=== PATIENT | female | born 1975 | race Hispanic/Latino ===

== ENCOUNTER 2021-09-16 11:35 | Inpatient (IN) | payer MEDICAID ==
[~2021-09-16] VITALS: Ht 157.5 cm; Wt 93.0 kg
[2021-09-16] MEDS ORDERED: FAMOTIDINE 20MG VIAL IV ONE (12:30)
[2021-09-16] MEDS ORDERED: 0.9%NACL 1000ML 1,000 ML IV ONE ×2 (12:30)
[2021-09-16] MEDS ORDERED: CEFTRIAXONE 1G VIAL IV ONE (12:30)
[2021-09-16] MEDS ORDERED: ONDANSETRON 4MG INJ IVP ONE (12:30)
[2021-09-16 12:39] LABS: BASOPHILS % (AUTO) 0.6 % (0.0-5.0); EOSINOPHILS % (AUTO) 0.1 % (0.0-8.0); HEMATOCRIT 32.1 % (36-48); LYMPHOCYTES % (AUTO) 8.3 % (21.0-51.0); MEAN CORPUSCULAR HEMOGLOBIN 20.4 pg (27.0-33.0); MEAN CORPUSCULAR HGB CONC 31.2 g/dL (32.0-36.0); MEAN CORPUSCULAR VOLUME 65.5 fL (79-99); MONOCYTES % (AUTO) 1.4 % (3.0-13.0); NEUTROPHILS % (AUTO) 88.4 % (40.0-77.0); PLATELET COUNT (AUTO) 83 K/uL (130-400); RED CELL DISTRIBUTION WIDTH 18.5 % (11.0-15.5); WHITE BLOOD COUNT (AUTO) 11.5 K/uL (4.8-10.8)
[2021-09-16 12:53] LABS: CARBON DIOXIDE 23 mmol/L (21-32); CHLORIDE 94 mmol/L (101-111); CREATININE 2.2 mg/dL (0.5-1.5); GLOMERULAR FILTR. RATE CALC 25 mL/min (>60); GLUCOSE,RANDOM 130 mg/dL (70-105); POTASSIUM 3.4 mmol/L (3.5-5.1); SODIUM SERUM 135 mmol/L (136-145); UREA NITROGEN, BLOOD 35 mg/dL (7-18)
[2021-09-16 13:00] LABS: ALANINE AMINOTRANSFERASE 77 U/L (12-78); ALBUMIN 2.4 g/dL (3.5-5.0); ASPARTATE AMINOTRANSFERASE 98 U/L (10-37); BILIRUBIN,TOTAL 2.3 mg/dL (0.2-1.0); TOTAL PROTEIN, SERUM 6.6 g/dL (6.0-8.3)
[2021-09-16] MEDS ORDERED: MORPHINE 2 MG SYG IVP ONE (13:00)
[2021-09-16] MEDS ORDERED: 0.9%NACL 50ML 50 ML IV ONE ×2 (13:00→19:20)
[2021-09-16 13:02] LABS: LIPASE < 50 U/L (114-286)
[2021-09-16 13:45] LABS: APPEARANCE,URINE CLEAR (CLEAR); BILIRUBIN,URINE MODERATE (NEGATIVE); COLOR,URINE YELLOW (YELLOW); GLUCOSE, URINE (UA) NEGATIVE (NEGATIVE); KETONES,URINE 5 mg/dL (NEGATIVE); LEUKOCYTE ESTERASE ,URINE MODERATE (NEGATIVE); NITRATE,URINE NEGATIVE (NEGATIVE); OCCULT BLOOD,URINE NEGATIVE (NEGATIVE); PROTEIN,URINE 100 mg/dL (NEGATIVE)
[2021-09-16 13:47] LABS: HCG,QUAL RESULT NEGATIVE (NEGATIVE)
[2021-09-16 13:51] LABS: BACTERIA,URINE Few /HPF (None Seen); RBC,URINE None Seen /HPF (0-1); YEAST,URINE BUDDING Few /HPF (None Seen)
[2021-09-16 13:52] LABS: MUCUS,URINE Rare LPF (None Seen); SQUAMOUS EPITHELIAL CELL,UR Moderate /HPF (0-2)
[2021-09-16] MEDS ORDERED: ONDANSETRON 4MG INJ IV PRN (16:30)
[2021-09-16] MEDS ORDERED: MORPHINE 2 MG SYG IV PRN (16:30)
[2021-09-16] MEDS: 0.9%NACL 1000ML 1,000 ML IV SCH ×2 (16:45→22:02)
[2021-09-16] MEDS: DOXYCYCLINE 100MG+NS 250ML IV SCH (16:47)
[2021-09-16] MEDS ORDERED: [UNRECOGNIZED DRUG - REMARK] MISC SCH (17:00)
[2021-09-16 17:26] LABS: HEMOGLOBIN A1C 8.3 % (4.0-6.0)
[2021-09-16 17:52] LABS: CRP QUANTITATIVE 382.6 mg/L (0.00-9.0)
[2021-09-16] MEDS: ALBUTEROL 0.083% 2.5 MG/3 ML INH IH SCH ×2 (18:00→21:18)
[2021-09-16] MEDS: ZOSYN 3.375GM+NS 50ML 50 ML IV SCH (19:26)
[2021-09-16] MEDS: ACETAMINOPHEN 325 MG TAB PO PRN (19:38)
[2021-09-16 20:15] VITALS: BP 113/50
[2021-09-16] MEDS ORDERED: ZOSYN 3.375GM+NS 50ML 50 ML IV SCH (21:00)
[2021-09-16] MEDS: BENZONATATE 100 MG CAPSULE PO SCH (21:49)
[2021-09-16] MEDS: FAMOTIDINE 20MG VIAL IV SCH (21:49)
[2021-09-16] MEDS ORDERED: IBUPROFEN 800 MG TAB PO STA (22:11)
[2021-09-16] MEDS ORDERED: KCL 20 MEQ ERTAB PO STA (22:11)
[2021-09-16 23:33] VITALS: BP 117/61
[2021-09-16] MEDS ORDERED: KCL 20 MEQ ERTAB PO ONE (23:47)
[2021-09-17] MEDS ORDERED: KETOROLAC 30MG VIAL (30MG/ML) IV ONE
[2021-09-17] MEDS: GUAIFENESIN-DM 200/20 MG 10 ML PO SCH ×5 (01:41→23:27)
[2021-09-17] MEDS: DOXYCYCLINE 100MG+NS 250ML IV SCH ×2 (03:38→15:48)
[2021-09-17 03:46] VITALS: BP 122/69
[2021-09-17 03:55] LABS: ALBUMIN 1.9 g/dL (3.5-5.0); BILIRUBIN,TOTAL 2.3 mg/dL (0.2-1.0); CREATININE 1.2 mg/dL (0.5-1.5); POTASSIUM 3.6 mmol/L (3.5-5.1); TOTAL PROTEIN, SERUM 5.6 g/dL (6.0-8.3)
[2021-09-17 03:56] LABS: BASOPHILS % (AUTO) 0.3 % (0.0-5.0); EOSINOPHILS % (AUTO) 0.1 % (0.0-8.0); HEMATOCRIT 30.2 % (36-48); LYMPHOCYTES % (AUTO) 15.1 % (21.0-51.0); MEAN CORPUSCULAR HEMOGLOBIN 19.9 pg (27.0-33.0); MEAN CORPUSCULAR HGB CONC 30.5 g/dL (32.0-36.0); MEAN CORPUSCULAR VOLUME 65.2 fL (79-99); MONOCYTES % (AUTO) 3.6 % (3.0-13.0); NEUTROPHILS % (AUTO) 78.5 % (40.0-77.0); PLATELET COUNT (AUTO) 83 K/uL (130-400); RED BLOOD CELL COUNT(AUTO) 4.63 MIL/uL (4.00-5.50); RED CELL DISTRIBUTION WIDTH 18.5 % (11.0-15.5); WHITE BLOOD COUNT (AUTO) 9.7 K/uL (4.8-10.8)
[2021-09-17] MEDS: LEVOTHYROXINE 25 MCG TABLET PO SCH (06:10)
[2021-09-17] MEDS: ZOSYN 3.375GM+NS 50ML 50 ML IV SCH ×2 (06:10→19:28)
[2021-09-17] MEDS: SOLU-MEDROL 40MG VIAL IVP SCH ×4 (06:10→23:27)
[2021-09-17 08:20] VITALS: BP_SYST 137; BP_SYST 92; BP_DIAS 58; BP_DIAS 71
[2021-09-17] MEDS: BENZONATATE 100 MG CAPSULE PO SCH ×3 (09:14→20:08)
[2021-09-17] MEDS: FAMOTIDINE 20MG VIAL IV SCH (09:14)
[2021-09-17] MEDS: METOPROLOL TARTRATE 25 MG TAB PO SCH ×2 (09:14→20:08)
[2021-09-17] MEDS: FERROUS SULFATE 325 MG TABLET.DR PO SCH (09:15)
[2021-09-17] MEDS: ACETAMINOPHEN 325 MG TAB PO PRN ×2 (09:51→19:30)
[2021-09-17 12:27] VITALS: BP 101/62
[2021-09-17] MEDS: 0.9%NACL 1000ML 1,000 ML IV SCH ×2 (14:38→22:41)
[2021-09-17 16:36] VITALS: BP 111/62
[2021-09-17 20:00] VITALS: BP 125/80
[2021-09-17] MEDS: ALBUTEROL 0.083% 2.5 MG/3 ML INH IH SCH (23:00)
[2021-09-18] VITALS (26 sets, daily range): BP systolic 65–142; BP diastolic 37–103
[2021-09-18] MEDS: ALBUTEROL 0.083% 2.5 MG/3 ML INH IH SCH ×6 (02:23→21:53)
[2021-09-18 04:43] LABS: BASOPHILS % (AUTO) 0.5 % (0.0-5.0); EOSINOPHILS % (AUTO) 0.1 % (0.0-8.0); HEMATOCRIT 32.5 % (36-48); LYMPHOCYTES % (AUTO) 24.9 % (21.0-51.0); MEAN CORPUSCULAR HEMOGLOBIN 20.1 pg (27.0-33.0); MEAN CORPUSCULAR HGB CONC 30.5 g/dL (32.0-36.0); MEAN CORPUSCULAR VOLUME 65.9 fL (79-99); MONOCYTES % (AUTO) 3.4 % (3.0-13.0); NEUTROPHILS % (AUTO) 66.3 % (40.0-77.0); NUCLEATED RED BLOOD CELLS 0.1 % (0.0-0.19); PLATELET COUNT (AUTO) 95 K/uL (130-400); RED BLOOD CELL COUNT(AUTO) 4.93 MIL/uL (4.00-5.50); RED CELL DISTRIBUTION WIDTH 18.4 % (11.0-15.5); WHITE BLOOD COUNT (AUTO) 17.2 K/uL (4.8-10.8)
[2021-09-18 04:59] LABS: ALBUMIN 2.2 g/dL (3.5-5.0); BILIRUBIN,TOTAL 3.4 mg/dL (0.2-1.0); CREATININE 1.1 mg/dL (0.5-1.5); POTASSIUM 3.6 mmol/L (3.5-5.1); THYROID STIMULATING HORMONE 0.34 uIU/mL (0.36-3.74); TOTAL PROTEIN, SERUM 6.9 g/dL (6.0-8.3)
[2021-09-18] MEDS: DOXYCYCLINE 100MG+NS 250ML IV SCH ×2 (05:41→15:42)
[2021-09-18] MEDS: SOLU-MEDROL 40MG VIAL IVP SCH ×3 (05:41→16:30)
[2021-09-18] MEDS: LEVOTHYROXINE 25 MCG TABLET PO SCH (05:41)
[2021-09-18] MEDS: GUAIFENESIN-DM 200/20 MG 10 ML PO SCH ×3 (06:10→19:00)
[2021-09-18] MEDS: 0.9%NACL 1000ML 1,000 ML IV SCH (08:30)
[2021-09-18] MEDS: FERROUS SULFATE 325 MG TABLET.DR PO SCH (08:32)
[2021-09-18] MEDS: ZOSYN 3.375GM+NS 50ML 50 ML IV SCH ×2 (08:32→20:07)
[2021-09-18] MEDS: FAMOTIDINE 20MG VIAL IV SCH (08:32)
[2021-09-18] MEDS: BENZONATATE 100 MG CAPSULE PO SCH ×3 (08:33→20:08)
[2021-09-18] MEDS: METOPROLOL TARTRATE 25 MG TAB PO SCH ×2 (08:33→20:08)
[2021-09-18] MEDS ORDERED: FUROSEMIDE 40MG VIAL IV SCH ×3 (11:00→23:00)
[2021-09-18] MEDS ORDERED: DEXMEDETOMIDINE HCL 400 MCG in 0.9%NACL 100ML 96 ML IV PRN (14:30)
[2021-09-18] MEDS ORDERED: DEXMEDETOMIDINE 400MCG/NS100ML IV ONE (14:54)
[2021-09-18] MEDS ORDERED: LORAZEPAM 2 MG/ML 1 ML VIAL ONE (16:01)
[2021-09-18] MEDS ORDERED: HALOPERIDOL INJ 5 MG/ML VIAL ONE (16:07)
[2021-09-18] MEDS ORDERED: PROPOFOL 1000 MG/100 ML 100 ML IV ONE (16:19)
[2021-09-18] MEDS ORDERED: HALOPERIDOL INJ 5 MG/ML VIAL IV SCH (16:30)
[2021-09-18] MEDS ORDERED: LORAZEPAM 2 MG/ML 1 ML VIAL IM ONE (16:30)
[2021-09-18] MEDS ORDERED: MIDAZOLAM 100MG-0.9% NS 100ML 100ML BAG IV ONE (16:30)
[2021-09-18] MEDS ORDERED: NOREPINEPHRIN 4MG/NS 250ML 250 ML IV SCH (16:30)
[2021-09-18 16:59] LABS: ABG BASE EXCESS -12.7 mmol/L (-2.0-3.0); ABG HCO3 14.2 mmol/L (21.0-28.0); ABG OXYGEN SATURATION 95.3 % (95.0-99.0); ABG PCO2 36 mmHg (32-45)
[2021-09-18] MEDS ORDERED: AMIODARONE 900MG VIAL 360 MG in DEXTROSE 5%-WATER 200 ML IV SCH (17:00)
[2021-09-18] MEDS ORDERED: SODIUM BICARB 50MEQ 50ML VIAL IV STA ×2 (17:00→21:52)
[2021-09-18] MEDS ORDERED: PHENYLEPHRINE HCL 10 MG in 0.9% NACL 250ML 250 ML IV PRN (17:00)
[2021-09-18] MEDS ORDERED: AMIODARONE 150MG VIAL 150 MG in DEXTROSE 5%-WATER 100 ML IV SCH (17:00)
[2021-09-18] MEDS ORDERED: SODIUM BICARB 50MEQ 50ML VIAL 150 ML ONE (17:04)
[2021-09-18] MEDS: 0.9% NACL 500ML IV.SOLN 500 ML IV SCH ×4 (17:12→20:34)
[2021-09-18 17:23] LABS: HEMATOCRIT 32.3 % (36-48); MEAN CORPUSCULAR HGB CONC 29.7 g/dL (32.0-36.0); MEAN CORPUSCULAR VOLUME 67.4 fL (79-99); NUCLEATED RED BLOOD CELLS 0.5 % (0.0-0.19); PLATELET COUNT (AUTO) 119 K/uL (130-400); RED BLOOD CELL COUNT(AUTO) 4.79 MIL/uL (4.00-5.50); RED CELL DISTRIBUTION WIDTH 19.1 % (11.0-15.5); WHITE BLOOD COUNT (AUTO) 20.7 K/uL (4.8-10.8)
[2021-09-18 17:49] LABS: POTASSIUM 3.5 mmol/L (3.5-5.1)
[2021-09-18 18:57] LABS: ALBUMIN 2.2 g/dL (3.5-5.0); BILIRUBIN,TOTAL 2.2 mg/dL (0.2-1.0); CREATININE 1.3 mg/dL (0.5-1.5); MAGNESIUM 2.2 mg/dL (1.80-2.40); PHOSPHORUS 3.4 mg/dL (2.5-4.9); TOTAL PROTEIN, SERUM 6.8 g/dL (6.0-8.3)
[2021-09-18] MEDS ORDERED: PHENYLEPHRINE HCL 100 MG in 0.9% NACL 250ML 250 ML IV PRN (19:30)
[2021-09-18] MEDS ORDERED: 0.9%NACL 50ML 50 ML IV ONE (20:02)
[2021-09-18] MEDS: PROPOFOL 1000 MG/100 ML 100 ML IV SCH ×2 (20:07→23:56)
[2021-09-18] MEDS ORDERED: MIDAZOLAM 100MG-0.9% NS 100ML 100ML BAG IV STA (20:30)
[2021-09-18 20:39] LABS: ABG BASE EXCESS -10.6 mmol/L (-2.0-3.0); ABG HCO3 14.9 mmol/L (21.0-28.0); ABG OXYGEN SATURATION 97.2 % (95.0-99.0); ABG PCO2 33 mmHg (32-45)
[2021-09-18] MEDS: PHENYLEPHRINE HCL 10 MG in 0.9% NACL 250ML 250 ML IV PRN ×3 (20:57→22:53)
[2021-09-18] MEDS ORDERED: SODIUM BICARB 8.4% 50ML SYRING 150 MEQ in DEXTROSE 5%-WATER 1,000 ML IVP SCH (22:00)
[2021-09-18] MEDS ORDERED: DEXTROSE 5%-WATER 1,000 ML IV ONE (22:13)
[2021-09-18] MEDS: AMIODARONE 900MG VIAL 540 MG in DEXTROSE 5%-WATER 300 ML IV SCH (23:35)
[2021-09-19] VITALS (43 sets, daily range): BP systolic 79–121; BP diastolic 49–91
[2021-09-19] MEDS: PHENYLEPHRINE HCL 10 MG in 0.9% NACL 250ML 250 ML IV PRN ×10 (00:28→22:50)
[2021-09-19] MEDS: SOLU-MEDROL 40MG VIAL IVP SCH ×4 (01:05→23:50)
[2021-09-19] MEDS: GUAIFENESIN-DM 200/20 MG 10 ML PO SCH ×4 (01:05→18:05)
[2021-09-19] MEDS ORDERED: MIDAZOLAM 50MG-0.9% NS 50ML 50 ML IV SCH (01:30)
[2021-09-19 02:54] LABS: ABG BASE EXCESS -2.7 mmol/L (-2.0-3.0); ABG HCO3 21.3 mmol/L (21.0-28.0); ABG OXYGEN SATURATION 96.4 % (95.0-99.0); ABG PCO2 34 mmHg (32-45)
[2021-09-19] MEDS: DOXYCYCLINE 100MG+NS 250ML IV SCH ×2 (03:35→15:35)
[2021-09-19] MEDS: PROPOFOL 1000 MG/100 ML 100 ML IV SCH ×7 (03:35→22:50)
[2021-09-19] MEDS: ALBUTEROL 0.083% 2.5 MG/3 ML INH IH SCH ×6 (03:42→22:31)
[2021-09-19 04:05] LABS: BASOPHILS % (AUTO) 0.6 % (0.0-5.0); EOSINOPHILS % (AUTO) 0.1 % (0.0-8.0); HEMATOCRIT 29.1 % (36-48); LYMPHOCYTES % (AUTO) 27.2 % (21.0-51.0); MEAN CORPUSCULAR HEMOGLOBIN 21.2 pg (27.0-33.0); MEAN CORPUSCULAR VOLUME 66.4 fL (79-99); MONOCYTES % (AUTO) 5.6 % (3.0-13.0); NEUTROPHILS % (AUTO) 56.1 % (40.0-77.0); NUCLEATED RED BLOOD CELLS 3.2 % (0.0-0.19); PLATELET COUNT (AUTO) 144 K/uL (130-400); RED BLOOD CELL COUNT(AUTO) 4.38 MIL/uL (4.00-5.50); RED CELL DISTRIBUTION WIDTH 18.6 % (11.0-15.5); WHITE BLOOD COUNT (AUTO) 19.4 K/uL (4.8-10.8)
[2021-09-19 04:14] LABS: ALBUMIN 1.9 g/dL (3.5-5.0); BILIRUBIN,TOTAL 2.8 mg/dL (0.2-1.0); CREATININE 1.3 mg/dL (0.5-1.5); POTASSIUM 4.1 mmol/L (3.5-5.1)
[2021-09-19] MEDS ORDERED: 0.9%NACL 50ML 50 ML IV ONE (06:10)
[2021-09-19] MEDS: ZOSYN 3.375GM+NS 50ML 50 ML IV SCH ×2 (06:12→18:06)
[2021-09-19 07:31] LABS: ABG HCO3 23.6 mmol/L (21.0-28.0); ABG OXYGEN SATURATION 96.2 % (95.0-99.0); ABG PCO2 35 mmHg (32-45)
[2021-09-19] MEDS: METOPROLOL TARTRATE 25 MG TAB PO SCH (07:45)
[2021-09-19] MEDS: FAMOTIDINE 20MG VIAL IV SCH (07:53)
[2021-09-19] MEDS: BENZONATATE 100 MG CAPSULE PO SCH ×2 (07:54→13:04)
[2021-09-19] MEDS: FERROUS SULFATE 325 MG TABLET.DR PO SCH (07:54)
[2021-09-19] MEDS ORDERED: PHARMACY COMMUNICATION MISC SCH ×3 (08:30→14:00)
[2021-09-19] MEDS: INSULIN HUMULIN R 100 UNIT/ML 3ML SQ SCH ×3 (11:28→23:49)
[2021-09-19] MEDS: MIDAZOLAM 100MG-0.9% NS 100ML 100 ML IV SCH (14:00)
[2021-09-19] MEDS: FENTANYL 2500MCG+NS 250ML 250 ML IV SCH (14:43)
[2021-09-19] MEDS ORDERED: ENOXAPARIN SODIUM 40 MG/0.4 ML SYRINGE SQ SCH (16:00)
[2021-09-19] MEDS: AMIODARONE 900MG VIAL 540 MG in DEXTROSE 5%-WATER 300 ML IV SCH ×2 (17:31→17:38)
[2021-09-19] MEDS ORDERED: BENZONATATE 100 MG CAPSULE PO PRN (18:30)
[2021-09-19] MEDS ORDERED: PHENYLEPHRINE HCL 100 MG in 0.9% NACL 250ML 250 ML IV PRN (19:00)
[2021-09-20] VITALS (24 sets, daily range): BP systolic 104–135; BP diastolic 55–84
[2021-09-20] MEDS: PROPOFOL 1000 MG/100 ML 100 ML IV SCH ×5 (02:12→16:50)
[2021-09-20] MEDS: PHENYLEPHRINE HCL 10 MG in 0.9% NACL 250ML 250 ML IV PRN ×4 (02:13→12:40)
[2021-09-20] MEDS: ALBUTEROL 0.083% 2.5 MG/3 ML INH IH SCH ×6 (03:02→21:50)
[2021-09-20] MEDS: MIDAZOLAM 100MG-0.9% NS 100ML 100 ML IV SCH ×3 (03:38→23:24)
[2021-09-20] MEDS: DOXYCYCLINE 100MG+NS 250ML IV SCH ×2 (04:12→16:53)
[2021-09-20 05:09] LABS: BASOPHILS % (AUTO) 0.4 % (0.0-5.0); EOSINOPHILS % (AUTO) 0.1 % (0.0-8.0); HEMATOCRIT 28.1 % (36-48); LYMPHOCYTES % (AUTO) 27.6 % (21.0-51.0); MEAN CORPUSCULAR HEMOGLOBIN 21.9 pg (27.0-33.0); MEAN CORPUSCULAR HGB CONC 32.7 g/dL (32.0-36.0); MEAN CORPUSCULAR VOLUME 66.9 fL (79-99); MONOCYTES % (AUTO) 4.7 % (3.0-13.0); NEUTROPHILS % (AUTO) 55.4 % (40.0-77.0); NUCLEATED RED BLOOD CELLS 8.6 % (0.0-0.19); PLATELET COUNT (AUTO) 166 K/uL (130-400); RED CELL DISTRIBUTION WIDTH 18.7 % (11.0-15.5); WHITE BLOOD COUNT (AUTO) 14.4 K/uL (4.8-10.8)
[2021-09-20 05:34] LABS: ALBUMIN 1.8 g/dL (3.5-5.0); BILIRUBIN,TOTAL 2.9 mg/dL (0.2-1.0); CREATININE 0.9 mg/dL (0.5-1.5); MAGNESIUM 2.7 mg/dL (1.80-2.40); PHOSPHORUS 1.4 mg/dL (2.5-4.9); POTASSIUM 4.8 mmol/L (3.5-5.1)
[2021-09-20] MEDS: ACETAMINOPHEN 325 MG TAB PO PRN ×2 (05:45→19:58)
[2021-09-20 05:49] LABS: BAND NEUTROPHILS % (MANUAL) 8 % (0-2); LYMPHOCYTES % (MANUAL) 6 % (22-44); METAMYELOCYTES % 3 % (0-0); MONOCYTES % (MANUAL) 2 % (2-9); MYELOCYTES % 1 % (0-0); PROMYELOCYTES % 1 (0-0); SEGMENTED NEUTROPHILS % 79 % (40-70)
[2021-09-20 05:50] LABS: MAN.DIFF COMMENT-IMPRESSION MANUAL DIF
[2021-09-20 06:01] LABS: INR 1.41 (0.85-1.15); PROTHROMBIN TIME 14.3 SEC (9.6-11.6)
[2021-09-20] MEDS: ZOSYN 3.375GM+NS 50ML 50 ML IV SCH ×2 (06:15→16:52)
[2021-09-20] MEDS: INSULIN HUMULIN R 100 UNIT/ML 3ML SQ SCH ×3 (06:29→18:16)
[2021-09-20 07:09] LABS: ABG BASE EXCESS 4.4 mmol/L (-2.0-3.0); ABG HCO3 26.6 mmol/L (21.0-28.0); ABG OXYGEN SATURATION 95.2 % (95.0-99.0); ABG PCO2 31 mmHg (32-45)
[2021-09-20] MEDS: FAMOTIDINE 20MG VIAL IV SCH (08:59)
[2021-09-20] MEDS: SOLU-MEDROL 40MG VIAL IVP SCH ×3 (08:59→23:24)
[2021-09-20] MEDS: FERROUS SULFATE 325 MG TABLET.DR PO SCH (09:01)
[2021-09-20] MEDS: FENTANYL 2500MCG+NS 250ML 250 ML IV SCH (09:01)
[2021-09-20] MEDS ORDERED: POTASSIUM PHOS 15 mMOL+NS250ML 250 ML IV PRN (10:00)
[2021-09-20] MEDS: FUROSEMIDE 20MG VIAL IV SCH ×2 (11:27→17:05)
[2021-09-20] MEDS ORDERED: 0.9%NACL 1000ML 1,000 ML IV ONE (23:20)
[2021-09-21] VITALS (29 sets, daily range): BP systolic 117–149; BP diastolic 57–86
[2021-09-21] MEDS: FUROSEMIDE 20MG VIAL IV SCH ×3 (02:00→17:39)
[2021-09-21] MEDS: PROPOFOL 1000 MG/100 ML 100 ML IV SCH ×2 (02:49→11:53)
[2021-09-21] MEDS: ALBUTEROL 0.083% 2.5 MG/3 ML INH IH SCH ×5 (02:50→21:58)
[2021-09-21] MEDS: DOXYCYCLINE 100MG+NS 250ML IV SCH ×2 (03:30→16:13)
[2021-09-21 04:42] LABS: BASOPHILS % (AUTO) 0.2 % (0.0-5.0); HEMATOCRIT 26.8 % (36-48); LYMPHOCYTES % (AUTO) 23.7 % (21.0-51.0); MEAN CORPUSCULAR HEMOGLOBIN 20.8 pg (27.0-33.0); MEAN CORPUSCULAR HGB CONC 30.2 g/dL (32.0-36.0); MEAN CORPUSCULAR VOLUME 68.7 fL (79-99); MONOCYTES % (AUTO) 5.1 % (3.0-13.0); NEUTROPHILS % (AUTO) 58.2 % (40.0-77.0); NUCLEATED RED BLOOD CELLS 12.3 % (0.0-0.19); PLATELET COUNT (AUTO) 206 K/uL (130-400); RED CELL DISTRIBUTION WIDTH 18.8 % (11.0-15.5); WHITE BLOOD COUNT (AUTO) 8.5 K/uL (4.8-10.8)
[2021-09-21 05:07] LABS: ALBUMIN 2.1 g/dL (3.5-5.0); BILIRUBIN,TOTAL 2.6 mg/dL (0.2-1.0); MAGNESIUM 2.6 mg/dL (1.80-2.40); PHOSPHORUS 2.1 mg/dL (2.5-4.9); POTASSIUM 3.7 mmol/L (3.5-5.1); TOTAL PROTEIN, SERUM 6.2 g/dL (6.0-8.3)
[2021-09-21] MEDS: AMIODARONE 900MG VIAL 540 MG in DEXTROSE 5%-WATER 300 ML IV SCH (05:30)
[2021-09-21] MEDS: INSULIN HUMULIN R 100 UNIT/ML 3ML SQ SCH ×6 (06:46→17:41)
[2021-09-21 07:04] LABS: ABG BASE EXCESS 7.5 mmol/L (-2.0-3.0); ABG HCO3 31.7 mmol/L (21.0-28.0); ABG OXYGEN SATURATION 90.9 % (95.0-99.0); ABG PCO2 44 mmHg (32-45)
[2021-09-21] MEDS: ZOSYN 3.375GM+NS 50ML 50 ML IV SCH ×2 (07:07→18:35)
[2021-09-21] MEDS: FENTANYL 2500MCG+NS 250ML 250 ML IV SCH ×2 (07:11→20:25)
[2021-09-21] MEDS: SOLU-MEDROL 40MG VIAL IVP SCH ×2 (08:46→16:13)
[2021-09-21] MEDS: FAMOTIDINE 20MG VIAL IV SCH (08:46)
[2021-09-21] MEDS: FERROUS SULFATE 325 MG TABLET.DR PO SCH (08:46)
[2021-09-21] MEDS: ENOXAPARIN SODIUM 120 MG/0.8ML SQ SCH ×2 (08:47→20:26)
[2021-09-21] MEDS: INSULIN GLARGINE 100 UNITS/ML 10 ML VIAL SQ SCH ×2 (08:54→20:27)
[2021-09-21] MEDS: MIDAZOLAM 100MG-0.9% NS 100ML 100 ML IV SCH ×2 (08:56→18:35)
[2021-09-21] MEDS ORDERED: INSULIN GLARGINE 100 UNITS/ML 10 ML VIAL SQ SCH ×2 (21:00)
[2021-09-22] VITALS (30 sets, daily range): BP systolic 123–159; BP diastolic 61–94
[2021-09-22] MEDS: SOLU-MEDROL 40MG VIAL IVP SCH ×3 (00:39→20:21)
[2021-09-22] MEDS: INSULIN HUMULIN R 100 UNIT/ML 3ML SQ SCH ×10 (00:41→23:39)
[2021-09-22] MEDS: ALBUTEROL 0.083% 2.5 MG/3 ML INH IH SCH ×6 (03:00→21:37)
[2021-09-22] MEDS: FUROSEMIDE 20MG VIAL IV SCH ×2 (04:02→09:01)
[2021-09-22] MEDS: DOXYCYCLINE 100MG+NS 250ML IV SCH (04:02)
[2021-09-22 04:47] LABS: HEMATOCRIT 27.2 % (36-48); MEAN CORPUSCULAR HEMOGLOBIN 20.2 pg (27.0-33.0); MEAN CORPUSCULAR VOLUME 69.4 fL (79-99); PLATELET COUNT (AUTO) 186 K/uL (130-400); RED BLOOD CELL COUNT(AUTO) 3.92 MIL/uL (4.00-5.50); RED CELL DISTRIBUTION WIDTH 18.7 % (11.0-15.5); WHITE BLOOD COUNT (AUTO) 6.5 K/uL (4.8-10.8)
[2021-09-22 05:10] LABS: % IRON SATURATION 12.8 % (22-44)
[2021-09-22 05:11] LABS: ALBUMIN 2.1 g/dL (3.5-5.0); BILIRUBIN,DIRECT 1.2 mg/dL (0.0-0.3); BILIRUBIN,TOTAL 1.8 mg/dL (0.2-1.0); CREATININE 0.9 mg/dL (0.5-1.5); POTASSIUM 3.6 mmol/L (3.5-5.1)
[2021-09-22] MEDS: ACETAMINOPHEN 325 MG TAB PO PRN ×2 (05:12→15:21)
[2021-09-22] MEDS ORDERED: 0.9%NACL 50ML 50 ML IV ONE (05:25)
[2021-09-22 05:26] LABS: BAND NEUTROPHILS % (MANUAL) 2 % (0-2); LYMPHOCYTES % (MANUAL) 17 % (22-44); MAN.DIFF COMMENT-IMPRESSION MANUAL DIFFERENTIAL; MONOCYTES % (MANUAL) 5 % (2-9); SEGMENTED NEUTROPHILS % 76 % (40-70)
[2021-09-22] MEDS: MIDAZOLAM 100MG-0.9% NS 100ML 100 ML IV SCH ×3 (05:28→21:03)
[2021-09-22] MEDS: ZOSYN 3.375GM+NS 50ML 50 ML IV SCH (06:20)
[2021-09-22 07:07] LABS: ABG BASE EXCESS 6.8 mmol/L (-2.0-3.0); ABG HCO3 30.4 mmol/L (21.0-28.0); ABG PCO2 40 mmHg (32-45)
[2021-09-22] MEDS: FAMOTIDINE 20MG VIAL IV SCH (08:01)
[2021-09-22] MEDS: FERROUS SULFATE 325 MG TABLET.DR PO SCH (08:02)
[2021-09-22] MEDS: ENOXAPARIN SODIUM 120 MG/0.8ML SQ SCH ×2 (08:02→20:22)
[2021-09-22] MEDS: INSULIN GLARGINE 100 UNITS/ML 10 ML VIAL SQ SCH ×2 (08:07→20:23)
[2021-09-22] MEDS ORDERED: POLYETHYLENE GLYCOL 3350 17 GM POWD.PACK PO SCH (09:30)
[2021-09-22] MEDS ORDERED: CALCIUM GLUC 1GM/10ML VIAL IVPB SCH (10:00)
[2021-09-22] MEDS ORDERED: 0.9%NACL 50ML IV SCH (10:00)
[2021-09-22] MEDS: IRON SUCROSE COMPLEX 100 MG in 0.9%NACL 50ML 50 ML IV SCH (11:27)
[2021-09-22] MEDS ORDERED: COMPOUND IV MISC 1 EACH IVSOLN MISC PRN (11:30)
[2021-09-22] MEDS: FENTANYL 2500MCG+NS 250ML 250 ML IV SCH ×2 (11:44→21:04)
[2021-09-22] MEDS ORDERED: PHARMACY COMMUNICATION MISC SCH (15:30)
[2021-09-22] MEDS: MEROPENEM 1 GM VIAL IVP SCH ×2 (15:37→23:37)
[2021-09-22] MEDS ORDERED: VANCOMYCIN 1.75GM/250ML NS IV SCH ×2 (16:00)
[2021-09-22] MEDS: ACETAZOLAMIDE SODIUM 500 MG VIAL IV SCH (20:22)
[2021-09-22] MEDS: VANCOMYCIN 1G/250ML KIT 250 ML IV SCH (23:37)
[2021-09-23] VITALS (24 sets, daily range): BP systolic 123–143; BP diastolic 62–76
[2021-09-23] MEDS: ALBUTEROL 0.083% 2.5 MG/3 ML INH IH SCH ×6 (01:54→21:32)
[2021-09-23 03:23] LABS: HEMATOCRIT 26.5 % (36-48); LYMPHOCYTES % (AUTO) 17.1 % (21.0-51.0); MEAN CORPUSCULAR HEMOGLOBIN 20.1 pg (27.0-33.0); MEAN CORPUSCULAR HGB CONC 28.3 g/dL (32.0-36.0); MEAN CORPUSCULAR VOLUME 70.9 fL (79-99); NEUTROPHILS % (AUTO) 70.5 % (40.0-77.0); NUCLEATED RED BLOOD CELLS 9.9 % (0.0-0.19); PLATELET COUNT (AUTO) 200 K/uL (130-400); RED BLOOD CELL COUNT(AUTO) 3.74 MIL/uL (4.00-5.50); RED CELL DISTRIBUTION WIDTH 20.1 % (11.0-15.5); WHITE BLOOD COUNT (AUTO) 5.6 K/uL (4.8-10.8)
[2021-09-23 03:42] LABS: ALBUMIN 2.1 g/dL (3.5-5.0); BILIRUBIN,TOTAL 1.5 mg/dL (0.2-1.0); CREATININE 0.6 mg/dL (0.5-1.5); TOTAL PROTEIN, SERUM 5.9 g/dL (6.0-8.3)
[2021-09-23] MEDS: INSULIN HUMULIN R 100 UNIT/ML 3ML SQ SCH ×6 (06:00→17:42)
[2021-09-23] MEDS: MEROPENEM 1 GM VIAL IVP SCH ×2 (06:11→16:03)
[2021-09-23] MEDS: ACETAMINOPHEN 325 MG TAB PO PRN (06:11)
[2021-09-23 07:04] LABS: ABG BASE EXCESS 3.7 mmol/L (-2.0-3.0); ABG OXYGEN SATURATION 93.4 % (95.0-99.0); ABG PCO2 46 mmHg (32-45)
[2021-09-23] MEDS: FAMOTIDINE 20MG VIAL IV SCH (07:58)
[2021-09-23] MEDS: SOLU-MEDROL 40MG VIAL IVP SCH ×2 (07:58→20:11)
[2021-09-23] MEDS: VANCOMYCIN 1G/250ML KIT 250 ML IV SCH ×2 (07:59→20:11)
[2021-09-23] MEDS: POLYETHYLENE GLYCOL 3350 17 GM POWD.PACK PO SCH (07:59)
[2021-09-23] MEDS: ENOXAPARIN SODIUM 120 MG/0.8ML SQ SCH ×2 (07:59→20:14)
[2021-09-23] MEDS: ASCORBIC ACID 500 MG TAB PO SCH (08:00)
[2021-09-23] MEDS: IRON SUCROSE COMPLEX 100 MG in 0.9%NACL 50ML 50 ML IV SCH (08:00)
[2021-09-23] MEDS: INSULIN GLARGINE 100 UNITS/ML 10 ML VIAL SQ SCH ×2 (08:11→20:14)
[2021-09-23] MEDS: ACETAZOLAMIDE SODIUM 500 MG VIAL IV SCH (08:36)
[2021-09-23] MEDS: MIDAZOLAM 100MG-0.9% NS 100ML 100 ML IV SCH ×2 (08:44→18:50)
[2021-09-23] MEDS: FENTANYL 2500MCG+NS 250ML 250 ML IV SCH ×2 (08:44→18:50)
[2021-09-23] MEDS ORDERED: INSULIN HUMULIN R 100 UNIT/ML 3ML SQ SCH (11:30)
[2021-09-24] VITALS (25 sets, daily range): BP systolic 123–150; BP diastolic 61–79
[2021-09-24] MEDS: MEROPENEM 1 GM VIAL IVP SCH ×4 (00:19→23:58)
[2021-09-24] MEDS: INSULIN HUMULIN R 100 UNIT/ML 3ML SQ SCH ×10 (00:22→23:59)
[2021-09-24] MEDS: ALBUTEROL 0.083% 2.5 MG/3 ML INH IH SCH ×6 (02:24→21:44)
[2021-09-24] MEDS: MIDAZOLAM 100MG-0.9% NS 100ML 100 ML IV SCH ×3 (05:19→21:52)
[2021-09-24] MEDS: FENTANYL 2500MCG+NS 250ML 250 ML IV SCH ×2 (05:19→12:46)
[2021-09-24] MEDS: SOLU-MEDROL 40MG VIAL IVP SCH ×2 (07:21→21:46)
[2021-09-24] MEDS: ASCORBIC ACID 500 MG TAB PO SCH (07:24)
[2021-09-24] MEDS: IRON SUCROSE COMPLEX 100 MG in 0.9%NACL 50ML 50 ML IV SCH (07:24)
[2021-09-24] MEDS: FAMOTIDINE 20MG VIAL IV SCH (07:24)
[2021-09-24] MEDS: POLYETHYLENE GLYCOL 3350 17 GM POWD.PACK PO SCH (07:25)
[2021-09-24] MEDS: INSULIN GLARGINE 100 UNITS/ML 10 ML VIAL SQ SCH ×2 (07:27→21:51)
[2021-09-24 07:30] LABS: ABG BASE EXCESS 1.3 mmol/L (-2.0-3.0); ABG HCO3 26.3 mmol/L (21.0-28.0); ABG OXYGEN SATURATION 93.6 % (95.0-99.0); ABG PCO2 44 mmHg (32-45)
[2021-09-24] MEDS ORDERED: ACETAZOLAMIDE SODIUM 500 MG VIAL IV SCH (09:00)
[2021-09-24 09:09] LABS: HEMATOCRIT 27.7 % (36-48); LYMPHOCYTES % (AUTO) 16.5 % (21.0-51.0); MEAN CORPUSCULAR HEMOGLOBIN 20.9 pg (27.0-33.0); MEAN CORPUSCULAR HGB CONC 28.2 g/dL (32.0-36.0); MEAN CORPUSCULAR VOLUME 74.3 fL (79-99); MONOCYTES % (AUTO) 3.4 % (3.0-13.0); NUCLEATED RED BLOOD CELLS 3.7 % (0.0-0.19); PLATELET COUNT (AUTO) 226 K/uL (130-400); RED BLOOD CELL COUNT(AUTO) 3.73 MIL/uL (4.00-5.50); RED CELL DISTRIBUTION WIDTH 21.6 % (11.0-15.5); WHITE BLOOD COUNT (AUTO) 5.7 K/uL (4.8-10.8)
[2021-09-24 09:32] LABS: ALBUMIN 2.2 g/dL (3.5-5.0); BILIRUBIN,DIRECT 0.6 mg/dL (0.0-0.3); BILIRUBIN,TOTAL 1.2 mg/dL (0.2-1.0); CREATININE 0.4 mg/dL (0.5-1.5); POTASSIUM 4.7 mmol/L (3.5-5.1); TOTAL PROTEIN, SERUM 5.8 g/dL (6.0-8.3)
[2021-09-24] MEDS: VANCOMYCIN 1G/250ML KIT 250 ML IV SCH ×2 (09:37→21:46)
[2021-09-24] MEDS: ENOXAPARIN SODIUM 120 MG/0.8ML SQ SCH ×2 (09:38→21:47)
[2021-09-24] MEDS ORDERED: FENTANYL 2500MCG+NS 250ML 250 ML IV ONE (20:06)
[2021-09-25] VITALS (21 sets, daily range): BP systolic 97–146; BP diastolic 53–77
[2021-09-25] MEDS: ALBUTEROL 0.083% 2.5 MG/3 ML INH IH SCH ×6 (02:42→21:43)
[2021-09-25] MEDS: FENTANYL 2500MCG+NS 250ML 250 ML IV PRN ×3 (03:41→22:34)
[2021-09-25 05:07] LABS: HEMATOCRIT 28.5 % (36-48); MEAN CORPUSCULAR HEMOGLOBIN 20.7 pg (27.0-33.0); MEAN CORPUSCULAR HGB CONC 28.8 g/dL (32.0-36.0); NUCLEATED RED BLOOD CELLS 0.9 % (0.0-0.19); PLATELET COUNT (AUTO) 139 K/uL (130-400); RED BLOOD CELL COUNT(AUTO) 3.96 MIL/uL (4.00-5.50); RED CELL DISTRIBUTION WIDTH 22.1 % (11.0-15.5); WHITE BLOOD COUNT (AUTO) 8.9 K/uL (4.8-10.8)
[2021-09-25 05:42] LABS: CREATININE 0.3 mg/dL (0.5-1.5); POTASSIUM 5.6 mmol/L (3.5-5.1)
[2021-09-25] MEDS: INSULIN HUMULIN R 100 UNIT/ML 3ML SQ SCH ×6 (06:00→17:13)
[2021-09-25] MEDS: MEROPENEM 1 GM VIAL IVP SCH ×2 (06:27→14:32)
[2021-09-25] MEDS ORDERED: KAYEXALATE 15GM/60ML PO SCH (08:00)
[2021-09-25] MEDS: VANCOMYCIN 1G/250ML KIT 250 ML IV SCH ×2 (08:21→20:14)
[2021-09-25] MEDS: FAMOTIDINE 20MG VIAL IV SCH (08:21)
[2021-09-25] MEDS: POLYETHYLENE GLYCOL 3350 17 GM POWD.PACK PO SCH (08:21)
[2021-09-25] MEDS: SOLU-MEDROL 40MG VIAL IVP SCH ×2 (08:21→20:13)
[2021-09-25] MEDS: ASCORBIC ACID 500 MG TAB PO SCH (08:21)
[2021-09-25] MEDS: ENOXAPARIN SODIUM 120 MG/0.8ML SQ SCH ×2 (08:22→20:15)
[2021-09-25] MEDS: INSULIN GLARGINE 100 UNITS/ML 10 ML VIAL SQ SCH ×2 (08:25→20:17)
[2021-09-25] MEDS: IRON SUCROSE COMPLEX 100 MG in 0.9%NACL 50ML 50 ML IV SCH (08:29)
[2021-09-25] MEDS: MIDAZOLAM 100MG-0.9% NS 100ML 100 ML IV SCH ×2 (08:53→22:35)
[2021-09-26] VITALS (22 sets, daily range): BP systolic 99–156; BP diastolic 61–99
[2021-09-26] MEDS: MEROPENEM 1 GM VIAL IVP SCH ×4 (00:24→23:12)
[2021-09-26] MEDS: INSULIN HUMULIN R 100 UNIT/ML 3ML SQ SCH ×10 (00:26→23:18)
[2021-09-26] MEDS: ALBUTEROL 0.083% 2.5 MG/3 ML INH IH SCH ×6 (03:08→21:40)
[2021-09-26 04:49] LABS: HEMATOCRIT 27.4 % (36-48); MEAN CORPUSCULAR HEMOGLOBIN 21.6 pg (27.0-33.0); MEAN CORPUSCULAR HGB CONC 29.9 g/dL (32.0-36.0); MEAN CORPUSCULAR VOLUME 72.1 fL (79-99); NUCLEATED RED BLOOD CELLS 0.5 % (0.0-0.19); RED BLOOD CELL COUNT(AUTO) 3.8 MIL/uL (4.00-5.50); RED CELL DISTRIBUTION WIDTH 22.4 % (11.0-15.5); WHITE BLOOD COUNT (AUTO) 9.4 K/uL (4.8-10.8)
[2021-09-26 04:56] LABS: CREATININE 0.4 mg/dL (0.5-1.5); POTASSIUM 4.5 mmol/L (3.5-5.1)
[2021-09-26] MEDS: FAMOTIDINE 20MG VIAL IV SCH (08:00)
[2021-09-26] MEDS: SOLU-MEDROL 40MG VIAL IVP SCH ×2 (08:00→20:37)
[2021-09-26] MEDS: FERROUS SULFATE 325 MG TABLET.DR PO SCH (08:01)
[2021-09-26] MEDS: ENOXAPARIN SODIUM 120 MG/0.8ML SQ SCH ×2 (08:01→20:38)
[2021-09-26] MEDS: POLYETHYLENE GLYCOL 3350 17 GM POWD.PACK PO SCH (08:01)
[2021-09-26] MEDS: ASCORBIC ACID 500 MG TAB PO SCH (08:01)
[2021-09-26] MEDS: INSULIN GLARGINE 100 UNITS/ML 10 ML VIAL SQ SCH ×2 (08:03→20:38)
[2021-09-26] MEDS: VANCOMYCIN 1G/250ML KIT 250 ML IV SCH ×2 (08:09→20:48)
[2021-09-26] MEDS: MIDAZOLAM 100MG-0.9% NS 100ML 100 ML IV SCH (10:15)
[2021-09-26] MEDS: FENTANYL 2500MCG+NS 250ML 250 ML IV PRN (10:15)
[2021-09-26] MEDS: DEXMEDETOMIDINE 400MCG/NS100ML IV SCH ×5 (11:21→23:10)
[2021-09-27] VITALS (25 sets, daily range): BP systolic 85–160; BP diastolic 49–105
[2021-09-27] MEDS: FENTANYL 2500MCG+NS 250ML 250 ML IV PRN ×2 (01:05→16:59)
[2021-09-27] MEDS: ALBUTEROL 0.083% 2.5 MG/3 ML INH IH SCH ×6 (02:50→21:38)
[2021-09-27] MEDS: INSULIN HUMULIN R 100 UNIT/ML 3ML SQ SCH ×8 (05:15→23:45)
[2021-09-27] MEDS: DEXMEDETOMIDINE 400MCG/NS100ML IV SCH (05:17)
[2021-09-27 05:18] LABS: HEMATOCRIT 31.1 % (36-48); MEAN CORPUSCULAR HEMOGLOBIN 21.5 pg (27.0-33.0); MEAN CORPUSCULAR HGB CONC 29.9 g/dL (32.0-36.0); MEAN CORPUSCULAR VOLUME 71.8 fL (79-99); NUCLEATED RED BLOOD CELLS 0.2 % (0.0-0.19); RED BLOOD CELL COUNT(AUTO) 4.33 MIL/uL (4.00-5.50); RED CELL DISTRIBUTION WIDTH 24.2 % (11.0-15.5); WHITE BLOOD COUNT (AUTO) 9.5 K/uL (4.8-10.8)
[2021-09-27 05:32] LABS: ALBUMIN 2.3 g/dL (3.5-5.0); CREATININE 0.3 mg/dL (0.5-1.5); POTASSIUM 4.6 mmol/L (3.5-5.1)
[2021-09-27] MEDS: MEROPENEM 1 GM VIAL IVP SCH ×3 (08:11→22:33)
[2021-09-27] MEDS: ASCORBIC ACID 500 MG TAB PO SCH (08:17)
[2021-09-27] MEDS: ENOXAPARIN SODIUM 120 MG/0.8ML SQ SCH ×2 (08:18→20:31)
[2021-09-27] MEDS: SOLU-MEDROL 40MG VIAL IVP SCH ×2 (08:19→20:28)
[2021-09-27] MEDS: FAMOTIDINE 20MG VIAL IV SCH (08:19)
[2021-09-27] MEDS: POLYETHYLENE GLYCOL 3350 17 GM POWD.PACK PO SCH (08:19)
[2021-09-27] MEDS: FERROUS SULFATE 325 MG TABLET.DR PO SCH (08:24)
[2021-09-27] MEDS: VANCOMYCIN 1G/250ML KIT 250 ML IV SCH ×2 (08:24→20:31)
[2021-09-27] MEDS: INSULIN GLARGINE 100 UNITS/ML 10 ML VIAL SQ SCH ×2 (08:25→20:29)
[2021-09-27] MEDS: MIDAZOLAM 100MG-0.9% NS 100ML 100 ML IV SCH ×2 (09:57→20:49)
[2021-09-27] MEDS: ACETAMINOPHEN 325 MG TAB PO PRN (11:57)
[2021-09-27] MEDS ORDERED: LACTULOSE 20 GM/30 ML UDCUP PO SCH (21:00)
[2021-09-28] VITALS (24 sets, daily range): BP systolic 82–149; BP diastolic 53–94
[2021-09-28] MEDS: ALBUTEROL 0.083% 2.5 MG/3 ML INH IH SCH ×6 (02:32→20:54)
[2021-09-28] MEDS: FENTANYL 2500MCG+NS 250ML 250 ML IV PRN ×2 (03:56→17:59)
[2021-09-28 05:00] LABS: HEMATOCRIT 29.9 % (36-48); MEAN CORPUSCULAR HEMOGLOBIN 21.8 pg (27.0-33.0); MEAN CORPUSCULAR HGB CONC 29.8 g/dL (32.0-36.0); MEAN CORPUSCULAR VOLUME 73.3 fL (79-99); PLATELET COUNT (AUTO) 164 K/uL (130-400); RED BLOOD CELL COUNT(AUTO) 4.08 MIL/uL (4.00-5.50); WHITE BLOOD COUNT (AUTO) 9.4 K/uL (4.8-10.8)
[2021-09-28] MEDS: INSULIN HUMULIN R 100 UNIT/ML 3ML SQ SCH ×8 (06:01→23:31)
[2021-09-28 06:03] LABS: CREATININE 0.4 mg/dL (0.5-1.5); POTASSIUM 4.9 mmol/L (3.5-5.1)
[2021-09-28] MEDS: MIDAZOLAM 100MG-0.9% NS 100ML 100 ML IV SCH ×2 (06:07→23:41)
[2021-09-28] MEDS: MEROPENEM 1 GM VIAL IVP SCH ×3 (07:30→21:31)
[2021-09-28] MEDS: SOLU-MEDROL 40MG VIAL IVP SCH ×2 (07:31→20:00)
[2021-09-28] MEDS: POLYETHYLENE GLYCOL 3350 17 GM POWD.PACK PO SCH (08:02)
[2021-09-28] MEDS: FERROUS SULFATE 325 MG TABLET.DR PO SCH (08:02)
[2021-09-28] MEDS: FAMOTIDINE 20MG VIAL IV SCH (08:02)
[2021-09-28] MEDS: ASCORBIC ACID 500 MG TAB PO SCH (08:02)
[2021-09-28] MEDS: VANCOMYCIN 1G/250ML KIT 250 ML IV SCH ×2 (08:02→20:01)
[2021-09-28] MEDS: ENOXAPARIN SODIUM 120 MG/0.8ML SQ SCH ×2 (08:03→20:01)
[2021-09-28] MEDS: INSULIN GLARGINE 100 UNITS/ML 10 ML VIAL SQ SCH ×2 (08:09→20:06)
[2021-09-28] MEDS: DEXMEDETOMIDINE 400MCG/NS100ML IV SCH ×3 (11:37→23:40)
[2021-09-28] MEDS ORDERED: QUETIAPINE FUMARATE 25 MG TAB ONE (19:50)
[2021-09-28] MEDS: QUETIAPINE FUMARATE 25 MG TAB PO SCH (20:00)
[2021-09-28] MEDS: NYSTATIN 15 GM POWDER TP SCH (20:01)
[2021-09-29] VITALS (24 sets, daily range): BP systolic 82–166; BP diastolic 50–99
[2021-09-29] MEDS: ALBUTEROL 0.083% 2.5 MG/3 ML INH IH SCH ×6 (02:54→23:03)
[2021-09-29 05:15] LABS: HEMATOCRIT 31.8 % (36-48); MEAN CORPUSCULAR HEMOGLOBIN 22.1 pg (27.0-33.0); MEAN CORPUSCULAR HGB CONC 29.9 g/dL (32.0-36.0); MEAN CORPUSCULAR VOLUME 74.1 fL (79-99); RED BLOOD CELL COUNT(AUTO) 4.29 MIL/uL (4.00-5.50); RED CELL DISTRIBUTION WIDTH 28.2 % (11.0-15.5); WHITE BLOOD COUNT (AUTO) 9.3 K/uL (4.8-10.8)
[2021-09-29 05:32] LABS: ALBUMIN 2.5 g/dL (3.5-5.0); CREATININE 0.3 mg/dL (0.5-1.5); POTASSIUM 4.5 mmol/L (3.5-5.1)
[2021-09-29] MEDS: INSULIN HUMULIN R 100 UNIT/ML 3ML SQ SCH ×6 (05:51→18:30)
[2021-09-29 07:12] LABS: ABG BASE EXCESS 5.6 mmol/L (-2.0-3.0); ABG HCO3 28.8 mmol/L (21.0-28.0); ABG OXYGEN SATURATION 93.3 % (95.0-99.0); ABG PCO2 36 mmHg (32-45)
[2021-09-29] MEDS: DEXMEDETOMIDINE 400MCG/NS100ML IV SCH ×2 (07:17→13:39)
[2021-09-29] MEDS: SOLU-MEDROL 40MG VIAL IVP SCH ×2 (07:17→21:11)
[2021-09-29] MEDS: MEROPENEM 1 GM VIAL IVP SCH ×3 (07:17→23:41)
[2021-09-29] MEDS: FAMOTIDINE 20MG VIAL IV SCH (08:00)
[2021-09-29] MEDS: VANCOMYCIN 1G/250ML KIT 250 ML IV SCH ×2 (08:00→21:11)
[2021-09-29] MEDS: POLYETHYLENE GLYCOL 3350 17 GM POWD.PACK PO SCH (08:00)
[2021-09-29] MEDS: ASCORBIC ACID 500 MG TAB PO SCH (08:01)
[2021-09-29] MEDS: QUETIAPINE FUMARATE 25 MG TAB PO SCH ×3 (08:01→21:12)
[2021-09-29] MEDS: FERROUS SULFATE 325 MG TABLET.DR PO SCH (08:01)
[2021-09-29] MEDS: ENOXAPARIN SODIUM 120 MG/0.8ML SQ SCH ×2 (08:01→21:12)
[2021-09-29] MEDS: NYSTATIN 15 GM POWDER TP SCH ×2 (08:02→21:12)
[2021-09-29] MEDS: INSULIN GLARGINE 100 UNITS/ML 10 ML VIAL SQ SCH ×2 (08:02→21:14)
[2021-09-29] MEDS ORDERED: LACTULOSE 20 GM/30 ML UDCUP PO PRN (17:00)
[2021-09-30] VITALS (24 sets, daily range): BP systolic 90–135; BP diastolic 55–87
[2021-09-30] MEDS: MEROPENEM 1 GM VIAL IVP SCH ×3 (00:10→14:32)
[2021-09-30] MEDS: INSULIN HUMULIN R 100 UNIT/ML 3ML SQ SCH ×8 (00:55→17:13)
[2021-09-30] MEDS: FENTANYL 2500MCG+NS 250ML 250 ML IV PRN ×2 (01:10→23:40)
[2021-09-30] MEDS: ALBUTEROL 0.083% 2.5 MG/3 ML INH IH SCH ×6 (03:12→21:48)
[2021-09-30 03:38] LABS: BASOPHILS % (AUTO) 0.2 % (0.0-5.0); LYMPHOCYTES % (AUTO) 17.6 % (21.0-51.0); MEAN CORPUSCULAR HEMOGLOBIN 22.5 pg (27.0-33.0); MEAN CORPUSCULAR HGB CONC 29.7 g/dL (32.0-36.0); MEAN CORPUSCULAR VOLUME 75.7 fL (79-99); NEUTROPHILS % (AUTO) 78.8 % (40.0-77.0); PLATELET COUNT (AUTO) 282 K/uL (130-400); RED BLOOD CELL COUNT(AUTO) 3.83 MIL/uL (4.00-5.50); RED CELL DISTRIBUTION WIDTH 28.7 % (11.0-15.5); WHITE BLOOD COUNT (AUTO) 4.7 K/uL (4.8-10.8)
[2021-09-30 03:55] LABS: ALBUMIN 2.3 g/dL (3.5-5.0); BILIRUBIN,TOTAL 1.1 mg/dL (0.2-1.0); CREATININE 0.3 mg/dL (0.5-1.5); POTASSIUM 3.9 mmol/L (3.5-5.1)
[2021-09-30] MEDS: DEXMEDETOMIDINE 400MCG/NS100ML IV SCH ×3 (04:08→17:22)
[2021-09-30] MEDS: MIDAZOLAM 100MG-0.9% NS 100ML 100 ML IV SCH (06:19)
[2021-09-30 07:30] LABS: ABG BASE EXCESS 2.4 mmol/L (-2.0-3.0); ABG HCO3 25.1 mmol/L (21.0-28.0); ABG OXYGEN SATURATION 93.2 % (95.0-99.0); ABG PCO2 33 mmHg (32-45)
[2021-09-30] MEDS: SOLU-MEDROL 40MG VIAL IVP SCH ×2 (07:50→20:35)
[2021-09-30] MEDS: POLYETHYLENE GLYCOL 3350 17 GM POWD.PACK PO SCH (07:53)
[2021-09-30] MEDS: ASCORBIC ACID 500 MG TAB PO SCH (07:53)
[2021-09-30] MEDS: FERROUS SULFATE 325 MG TABLET.DR PO SCH (07:53)
[2021-09-30] MEDS: ENOXAPARIN SODIUM 120 MG/0.8ML SQ SCH ×2 (07:53→20:50)
[2021-09-30] MEDS: QUETIAPINE FUMARATE 25 MG TAB PO SCH ×3 (07:53→20:35)
[2021-09-30] MEDS: FAMOTIDINE 20MG VIAL IV SCH (07:54)
[2021-09-30] MEDS: VANCOMYCIN 1G/250ML KIT 250 ML IV SCH ×2 (07:54→20:53)
[2021-09-30] MEDS: INSULIN GLARGINE 100 UNITS/ML 10 ML VIAL SQ SCH ×2 (07:57→20:02)
[2021-09-30] MEDS: NYSTATIN 15 GM POWDER TP SCH ×2 (07:58→20:51)
[2021-09-30] MEDS ORDERED: DEXTROSE 50%-WATER 50 ML DISP.SYRIN IV ONE (20:14)
[2021-10-01] VITALS (24 sets, daily range): BP systolic 94–155; BP diastolic 56–97
[2021-10-01] MEDS: DEXMEDETOMIDINE 400MCG/NS100ML IV SCH ×3 (01:09→18:41)
[2021-10-01] MEDS: ALBUTEROL 0.083% 2.5 MG/3 ML INH IH SCH ×6 (02:53→22:21)
[2021-10-01 03:46] LABS: EOSINOPHILS % (AUTO) 0.2 % (0.0-8.0); HEMATOCRIT 29.8 % (36-48); LYMPHOCYTES % (AUTO) 13.3 % (21.0-51.0); MEAN CORPUSCULAR HEMOGLOBIN 21.9 pg (27.0-33.0); MEAN CORPUSCULAR HGB CONC 29.2 g/dL (32.0-36.0); MEAN CORPUSCULAR VOLUME 75.1 fL (79-99); MONOCYTES % (AUTO) 1.9 % (3.0-13.0); NEUTROPHILS % (AUTO) 84.1 % (40.0-77.0); PLATELET COUNT (AUTO) 307 K/uL (130-400); RED BLOOD CELL COUNT(AUTO) 3.97 MIL/uL (4.00-5.50); RED CELL DISTRIBUTION WIDTH 29.5 % (11.0-15.5); WHITE BLOOD COUNT (AUTO) 5.7 K/uL (4.8-10.8)
[2021-10-01 04:07] LABS: ALBUMIN 2.3 g/dL (3.5-5.0); BILIRUBIN,TOTAL 1.1 mg/dL (0.2-1.0); CREATININE 0.4 mg/dL (0.5-1.5); POTASSIUM 4.6 mmol/L (3.5-5.1); TOTAL PROTEIN, SERUM 6.2 g/dL (6.0-8.3)
[2021-10-01] MEDS: INSULIN HUMULIN R 100 UNIT/ML 3ML SQ SCH ×8 (06:27→17:08)
[2021-10-01 07:34] LABS: ABG BASE EXCESS 2.4 mmol/L (-2.0-3.0); ABG HCO3 24.6 mmol/L (21.0-28.0); ABG OXYGEN SATURATION 93.9 % (95.0-99.0); ABG PCO2 31 mmHg (32-45)
[2021-10-01] MEDS: VANCOMYCIN 1G/250ML KIT 250 ML IV SCH (08:43)
[2021-10-01] MEDS: POLYETHYLENE GLYCOL 3350 17 GM POWD.PACK PO SCH (08:43)
[2021-10-01] MEDS: ASCORBIC ACID 500 MG TAB PO SCH (08:43)
[2021-10-01] MEDS: FERROUS SULFATE 325 MG TABLET.DR PO SCH (08:44)
[2021-10-01] MEDS: FAMOTIDINE 20MG VIAL IV SCH (08:44)
[2021-10-01] MEDS: MEROPENEM 1 GM VIAL IVP SCH ×3 (08:44→23:46)
[2021-10-01] MEDS: QUETIAPINE FUMARATE 25 MG TAB PO SCH ×3 (08:44→19:59)
[2021-10-01] MEDS: SOLU-MEDROL 40MG VIAL IVP SCH ×2 (08:44→19:59)
[2021-10-01] MEDS: NYSTATIN 15 GM POWDER TP SCH ×2 (08:45→20:09)
[2021-10-01] MEDS: ENOXAPARIN SODIUM 120 MG/0.8ML SQ SCH ×2 (08:45→20:08)
[2021-10-01] MEDS: INSULIN GLARGINE 100 UNITS/ML 10 ML VIAL SQ SCH ×2 (08:46→20:00)
[2021-10-01] MEDS: MIDAZOLAM 100MG-0.9% NS 100ML 100 ML IV SCH (15:14)
[2021-10-01] MEDS: VANCOMYCIN 1G 1.5 GM in 0.9% NACL 250ML 250 ML IV SCH (21:00)
[2021-10-01] MEDS ORDERED: COMPOUND IV REFRIGERATED 1 EACH IVSOLN MISC PRN (21:30)
[2021-10-01] MEDS: FENTANYL 2500MCG+NS 250ML 250 ML IV PRN (22:39)
[2021-10-02] VITALS (24 sets, daily range): BP systolic 92–165; BP diastolic 54–110
[2021-10-02] MEDS: INSULIN HUMULIN R 100 UNIT/ML 3ML SQ SCH ×10 (00:27→23:21)
[2021-10-02] MEDS: ALBUTEROL 0.083% 2.5 MG/3 ML INH IH SCH ×6 (02:15→23:34)
[2021-10-02] MEDS: DEXMEDETOMIDINE 400MCG/NS100ML IV SCH ×3 (03:51→17:38)
[2021-10-02 04:48] LABS: BASOPHILS % (AUTO) 0.1 % (0.0-5.0); EOSINOPHILS % (AUTO) 0.1 % (0.0-8.0); HEMATOCRIT 29.8 % (36-48); LYMPHOCYTES % (AUTO) 21.7 % (21.0-51.0); MEAN CORPUSCULAR HEMOGLOBIN 22.3 pg (27.0-33.0); MEAN CORPUSCULAR HGB CONC 29.9 g/dL (32.0-36.0); MEAN CORPUSCULAR VOLUME 74.5 fL (79-99); MONOCYTES % (AUTO) 6.2 % (3.0-13.0); NEUTROPHILS % (AUTO) 71.4 % (40.0-77.0); PLATELET COUNT (AUTO) 223 K/uL (130-400); RED CELL DISTRIBUTION WIDTH 29.7 % (11.0-15.5); WHITE BLOOD COUNT (AUTO) 7.6 K/uL (4.8-10.8)
[2021-10-02 04:59] LABS: INR 1.05 (0.85-1.15); PROTHROMBIN TIME 11.4 SEC (9.6-11.6)
[2021-10-02 05:06] LABS: ALBUMIN 2.7 g/dL (3.5-5.0); CREATININE 0.2 mg/dL (0.5-1.5); MAGNESIUM 2.1 mg/dL (1.80-2.40); PHOSPHORUS 2.7 mg/dL (2.5-4.9); POTASSIUM 4.8 mmol/L (3.5-5.1); TOTAL PROTEIN, SERUM 6.6 g/dL (6.0-8.3)
[2021-10-02 06:07] LABS: PARTIAL THROMBOPLASTIN TIME < 20.0 SEC (26.3-35.5)
[2021-10-02] MEDS: MEROPENEM 1 GM VIAL IVP SCH ×3 (06:10→23:25)
[2021-10-02 07:05] LABS: ABG BASE EXCESS 5.6 mmol/L (-2.0-3.0); ABG HCO3 27.7 mmol/L (21.0-28.0); ABG OXYGEN SATURATION 95.5 % (95.0-99.0); ABG PCO2 33 mmHg (32-45)
[2021-10-02] MEDS: FERROUS SULFATE 325 MG TABLET.DR PO SCH (08:55)
[2021-10-02] MEDS: ASCORBIC ACID 500 MG TAB PO SCH (08:55)
[2021-10-02] MEDS: QUETIAPINE FUMARATE 25 MG TAB PO SCH ×3 (08:55→20:56)
[2021-10-02] MEDS: SOLU-MEDROL 40MG VIAL IVP SCH (08:55)
[2021-10-02] MEDS: FAMOTIDINE 20MG VIAL IV SCH (08:55)
[2021-10-02] MEDS: POLYETHYLENE GLYCOL 3350 17 GM POWD.PACK PO SCH (08:55)
[2021-10-02] MEDS: NYSTATIN 15 GM POWDER TP SCH ×2 (08:56→20:58)
[2021-10-02] MEDS: INSULIN GLARGINE 100 UNITS/ML 10 ML VIAL SQ SCH ×2 (08:56→21:00)
[2021-10-02] MEDS: ENOXAPARIN SODIUM 120 MG/0.8ML SQ SCH ×2 (08:57→19:28)
[2021-10-02] MEDS: VANCOMYCIN 1G 1.5 GM in 0.9% NACL 250ML 250 ML IV SCH ×2 (09:08→20:57)
[2021-10-03] VITALS (25 sets, daily range): BP systolic 82–149; BP diastolic 43–98
[2021-10-03] MEDS: DEXMEDETOMIDINE 400MCG/NS100ML IV SCH ×3 (02:34→18:46)
[2021-10-03] MEDS: ALBUTEROL 0.083% 2.5 MG/3 ML INH IH SCH ×6 (03:53→22:08)
[2021-10-03 04:11] LABS: HEMATOCRIT 30.9 % (36-48); MEAN CORPUSCULAR HEMOGLOBIN 22.7 pg (27.0-33.0); MEAN CORPUSCULAR HGB CONC 29.8 g/dL (32.0-36.0); MEAN CORPUSCULAR VOLUME 76.3 fL (79-99); RED BLOOD CELL COUNT(AUTO) 4.05 MIL/uL (4.00-5.50); RED CELL DISTRIBUTION WIDTH 30.3 % (11.0-15.5); WHITE BLOOD COUNT (AUTO) 6.5 K/uL (4.8-10.8)
[2021-10-03 04:31] LABS: CREATININE 0.4 mg/dL (0.5-1.5); POTASSIUM 3.8 mmol/L (3.5-5.1); THYROID STIMULATING HORMONE 3.36 uIU/mL (0.36-3.74)
[2021-10-03] MEDS: INSULIN HUMULIN R 100 UNIT/ML 3ML SQ SCH ×8 (06:00→23:36)
[2021-10-03] MEDS: MEROPENEM 1 GM VIAL IVP SCH ×3 (06:30→23:14)
[2021-10-03] MEDS ORDERED: LIDOCAINE 1%-EPI 1:100,000 20 ML VIAL IJ ONE (06:53)
[2021-10-03] MEDS ORDERED: ROCURONIUM 10MG/1ML SYR 10 MG/ML ML ONE (07:45)
[2021-10-03] MEDS ORDERED: PROPOFOL 10 MG/ML 20ML VIAL IV ONE ×2 (07:45→12:23)
[2021-10-03] MEDS: POLYETHYLENE GLYCOL 3350 17 GM POWD.PACK PO SCH (07:48)
[2021-10-03] MEDS: ASCORBIC ACID 500 MG TAB PO SCH (07:48)
[2021-10-03] MEDS: FERROUS SULFATE 325 MG TABLET.DR PO SCH (07:48)
[2021-10-03] MEDS: INSULIN GLARGINE 100 UNITS/ML 10 ML VIAL SQ SCH ×2 (07:48→21:00)
[2021-10-03] MEDS: ENOXAPARIN SODIUM 120 MG/0.8ML SQ SCH ×2 (07:49→20:49)
[2021-10-03] MEDS: NYSTATIN 15 GM POWDER TP SCH ×2 (07:49→20:51)
[2021-10-03] MEDS: PHENYLEPHRINE HCL 10 MG in 0.9% NACL 250ML 250 ML IV PRN (08:06)
[2021-10-03] MEDS ORDERED: GLYCOPYRROLATE 1 MG/5 ML SYRINGE ONE ×2 (08:09→12:29)
[2021-10-03] MEDS ORDERED: NEOSTIGMINE 5MG/5ML SYR IV ONE (08:09)
[2021-10-03] MEDS ORDERED: ONDANSETRON 4MG INJ ONE (08:10)
[2021-10-03] MEDS: FAMOTIDINE 20MG VIAL IV SCH (08:57)
[2021-10-03] MEDS: PREDNISONE 20 MG TABLET PO SCH (09:00)
[2021-10-03] MEDS ORDERED: VANCOMYCIN 1G 1.5 GM in 0.9% NACL 250ML 250 ML IV SCH (10:30)
[2021-10-03] MEDS ORDERED: KETAMINE 50MG/ML SYRINGE 50 MG/ML DISP.SYRIN IV ONE (12:22)
[2021-10-03] MEDS ORDERED: MIDAZOLAM HCL 1 MG/ML 5ML VIAL ONE (12:23)
[2021-10-03] MEDS ORDERED: 0.9%NACL 1000ML 1,000 ML IV ONE (13:06)
[2021-10-03] MEDS: FENTANYL 2500MCG+NS 250ML 250 ML IV PRN (15:48)
[2021-10-03] MEDS: QUETIAPINE FUMARATE 25 MG TAB PO SCH (20:48)
[2021-10-03] MEDS: VANCOMYCIN 1G/250ML KIT 250 ML IV SCH (21:38)
[2021-10-03] MEDS ORDERED: DEXTROSE 50%-WATER 50 ML DISP.SYRIN IV ONE (23:34)
[2021-10-04] VITALS (25 sets, daily range): BP systolic 79–114; BP diastolic 41–71
[2021-10-04] MEDS: ALBUTEROL 0.083% 2.5 MG/3 ML INH IH SCH ×6 (01:53→21:22)
[2021-10-04] MEDS: DEXMEDETOMIDINE 400MCG/NS100ML IV SCH ×2 (03:09→10:23)
[2021-10-04 04:51] LABS: BASOPHILS % (AUTO) 0.7 % (0.0-5.0); HEMATOCRIT 31.1 % (36-48); LYMPHOCYTES % (AUTO) 27.2 % (21.0-51.0); MEAN CORPUSCULAR HEMOGLOBIN 23.5 pg (27.0-33.0); MEAN CORPUSCULAR HGB CONC 30.2 g/dL (32.0-36.0); MEAN CORPUSCULAR VOLUME 77.8 fL (79-99); MONOCYTES % (AUTO) 4.8 % (3.0-13.0); NEUTROPHILS % (AUTO) 61.9 % (40.0-77.0); PLATELET COUNT (AUTO) 291 K/uL (130-400); RED CELL DISTRIBUTION WIDTH 30.4 % (11.0-15.5); WHITE BLOOD COUNT (AUTO) 5.6 K/uL (4.8-10.8)
[2021-10-04 05:14] LABS: ALBUMIN 2.6 g/dL (3.5-5.0); BILIRUBIN,TOTAL 1.3 mg/dL (0.2-1.0); CREATININE 0.4 mg/dL (0.5-1.5); MAGNESIUM 2.4 mg/dL (1.80-2.40); PHOSPHORUS 3.1 mg/dL (2.5-4.9); POTASSIUM 3.7 mmol/L (3.5-5.1); TOTAL PROTEIN, SERUM 6.6 g/dL (6.0-8.3)
[2021-10-04] MEDS: VANCOMYCIN 1G/250ML KIT 250 ML IV SCH ×3 (05:14→21:38)
[2021-10-04] MEDS: LEVOTHYROXINE 50 MCG TABLET PO SCH (05:14)
[2021-10-04] MEDS: INSULIN HUMULIN R 100 UNIT/ML 3ML SQ SCH ×7 (06:00→23:53)
[2021-10-04 07:07] LABS: ABG BASE EXCESS 0.5 mmol/L (-2.0-3.0); ABG HCO3 22.9 mmol/L (21.0-28.0); ABG PCO2 31 mmHg (32-45)
[2021-10-04] MEDS: INSULIN GLARGINE 100 UNITS/ML 10 ML VIAL SQ SCH ×2 (08:29→21:34)
[2021-10-04] MEDS: POLYETHYLENE GLYCOL 3350 17 GM POWD.PACK PO SCH (08:30)
[2021-10-04] MEDS: NYSTATIN 15 GM POWDER TP SCH ×2 (08:30→21:39)
[2021-10-04] MEDS: ENOXAPARIN SODIUM 120 MG/0.8ML SQ SCH ×2 (08:47→21:38)
[2021-10-04] MEDS: FERROUS SULFATE 325 MG TABLET.DR PO SCH (08:47)
[2021-10-04] MEDS: ASCORBIC ACID 500 MG TAB PO SCH (08:47)
[2021-10-04] MEDS: PREDNISONE 20 MG TABLET PO SCH (08:47)
[2021-10-04] MEDS: FAMOTIDINE 20MG VIAL IV SCH (08:47)
[2021-10-04] MEDS: MEROPENEM 1 GM VIAL IVP SCH ×2 (08:50→15:00)
[2021-10-04] MEDS: ACETAMINOPHEN 325 MG TAB PO PRN (13:12)
[2021-10-04] MEDS: QUETIAPINE FUMARATE 25 MG TAB PO SCH (21:32)
[2021-10-05] VITALS (24 sets, daily range): BP systolic 102–129; BP diastolic 44–89
[2021-10-05] MEDS: DEXMEDETOMIDINE 400MCG/NS100ML IV SCH ×2 (00:25→09:25)
[2021-10-05] MEDS: ALBUTEROL 0.083% 2.5 MG/3 ML INH IH SCH ×6 (02:26→22:08)
[2021-10-05] MEDS: INSULIN HUMULIN R 100 UNIT/ML 3ML SQ SCH ×3 (05:29→18:00)
[2021-10-05] MEDS: LEVOTHYROXINE 50 MCG TABLET PO SCH (05:31)
[2021-10-05 05:34] LABS: BASOPHILS % (AUTO) 0.6 % (0.0-5.0); EOSINOPHILS % (AUTO) 4.9 % (0.0-8.0); HEMATOCRIT 29.3 % (36-48); LYMPHOCYTES % (AUTO) 31.4 % (21.0-51.0); MEAN CORPUSCULAR HEMOGLOBIN 23.5 pg (27.0-33.0); MEAN CORPUSCULAR VOLUME 78.1 fL (79-99); MONOCYTES % (AUTO) 4.4 % (3.0-13.0); NEUTROPHILS % (AUTO) 58.5 % (40.0-77.0); PLATELET COUNT (AUTO) 251 K/uL (130-400); RED BLOOD CELL COUNT(AUTO) 3.75 MIL/uL (4.00-5.50); RED CELL DISTRIBUTION WIDTH 30.5 % (11.0-15.5); WHITE BLOOD COUNT (AUTO) 4.7 K/uL (4.8-10.8)
[2021-10-05 05:54] LABS: ALBUMIN 2.4 g/dL (3.5-5.0); BILIRUBIN,TOTAL 1.1 mg/dL (0.2-1.0); CREATININE 0.3 mg/dL (0.5-1.5); POTASSIUM 3.5 mmol/L (3.5-5.1); TOTAL PROTEIN, SERUM 6.3 g/dL (6.0-8.3)
[2021-10-05] MEDS ORDERED: POTASSIUM PHOS 15 mMOL+NS250ML 250 ML IV SCH (06:30)
[2021-10-05] MEDS: FAMOTIDINE 20MG VIAL IV SCH (09:02)
[2021-10-05] MEDS: FERROUS SULFATE 325 MG TABLET.DR PO SCH (09:03)
[2021-10-05] MEDS: ASCORBIC ACID 500 MG TAB PO SCH (09:03)
[2021-10-05] MEDS: APIXABAN 5 MG TABLET PO SCH ×2 (09:03→20:54)
[2021-10-05] MEDS: PREDNISONE 20 MG TABLET PO SCH (09:03)
[2021-10-05] MEDS: POLYETHYLENE GLYCOL 3350 17 GM POWD.PACK PO SCH (09:03)
[2021-10-05] MEDS: INSULIN GLARGINE 100 UNITS/ML 10 ML VIAL SQ SCH ×2 (09:25→20:55)
[2021-10-05] MEDS: QUETIAPINE FUMARATE 25 MG TAB PO SCH (20:53)
[2021-10-06] VITALS (17 sets, daily range): BP systolic 99–163; BP diastolic 40–96
[2021-10-06] MEDS: ALBUTEROL 0.083% 2.5 MG/3 ML INH IH SCH ×6 (02:28→21:34)
[2021-10-06 04:27] LABS: BASOPHILS % (AUTO) 0.3 % (0.0-5.0); EOSINOPHILS % (AUTO) 3.8 % (0.0-8.0); HEMATOCRIT 34.4 % (36-48); LYMPHOCYTES % (AUTO) 27.3 % (21.0-51.0); MEAN CORPUSCULAR HEMOGLOBIN 23.4 pg (27.0-33.0); MEAN CORPUSCULAR HGB CONC 29.9 g/dL (32.0-36.0); MONOCYTES % (AUTO) 3.5 % (3.0-13.0); NEUTROPHILS % (AUTO) 65.1 % (40.0-77.0); PLATELET COUNT (AUTO) 296 K/uL (130-400); RED BLOOD CELL COUNT(AUTO) 4.41 MIL/uL (4.00-5.50); RED CELL DISTRIBUTION WIDTH 31.1 % (11.0-15.5); WHITE BLOOD COUNT (AUTO) 6.3 K/uL (4.8-10.8)
[2021-10-06 04:39] LABS: BILIRUBIN,TOTAL 1.3 mg/dL (0.2-1.0); CREATININE 0.4 mg/dL (0.5-1.5); POTASSIUM 3.6 mmol/L (3.5-5.1); TOTAL PROTEIN, SERUM 7.5 g/dL (6.0-8.3)
[2021-10-06] MEDS: INSULIN HUMULIN R 100 UNIT/ML 3ML SQ SCH ×5 (05:29→23:35)
[2021-10-06] MEDS: LEVOTHYROXINE 50 MCG TABLET PO SCH (05:41)
[2021-10-06 06:55] LABS: ABG HCO3 24.2 mmol/L (21.0-28.0); ABG OXYGEN SATURATION 97.9 % (95.0-99.0); ABG PCO2 28 mmHg (32-45)
[2021-10-06] MEDS: FERROUS SULFATE 325 MG TABLET.DR PO SCH (08:29)
[2021-10-06] MEDS: PREDNISONE 20 MG TABLET PO SCH (08:30)
[2021-10-06] MEDS: FAMOTIDINE 20MG VIAL IV SCH (08:30)
[2021-10-06] MEDS: APIXABAN 5 MG TABLET PO SCH ×2 (08:30→20:47)
[2021-10-06] MEDS: ASCORBIC ACID 500 MG TAB PO SCH (08:30)
[2021-10-06] MEDS: INSULIN GLARGINE 100 UNITS/ML 10 ML VIAL SQ SCH ×2 (08:42→20:54)
[2021-10-06] MEDS: ACETAMINOPHEN 325 MG TAB PO PRN (10:28)
[2021-10-06] MEDS ORDERED: LIDOCAINE HCL-MPF 1% 2ML VIAL IV PRN (13:30)
[2021-10-06] MEDS: POTASSIUM CHLORIDE 20MEQ/100ML 100 ML IV PRN (14:46)
[2021-10-06] MEDS: QUETIAPINE FUMARATE 25 MG TAB PO SCH (20:47)
[2021-10-06] MEDS: ALPRAZOLAM 0.25 MG TABLET PO PRN (20:47)
[2021-10-07] VITALS (17 sets, daily range): BP systolic 104–159; BP diastolic 42–97
[2021-10-07] MEDS: ALBUTEROL 0.083% 2.5 MG/3 ML INH IH SCH ×6 (02:17→21:50)
[2021-10-07 03:40] LABS: HEMATOCRIT 35.4 % (36-48); MEAN CORPUSCULAR HEMOGLOBIN 23.7 pg (27.0-33.0); MEAN CORPUSCULAR HGB CONC 30.2 g/dL (32.0-36.0); MEAN CORPUSCULAR VOLUME 78.5 fL (79-99); PLATELET COUNT (AUTO) 317 K/uL (130-400); RED BLOOD CELL COUNT(AUTO) 4.51 MIL/uL (4.00-5.50); RED CELL DISTRIBUTION WIDTH 31.6 % (11.0-15.5); WHITE BLOOD COUNT (AUTO) 6.3 K/uL (4.8-10.8)
[2021-10-07 03:49] LABS: ALBUMIN 3.1 g/dL (3.5-5.0); CREATININE 0.5 mg/dL (0.5-1.5); POTASSIUM 3.7 mmol/L (3.5-5.1); TOTAL PROTEIN, SERUM 7.6 g/dL (6.0-8.3)
[2021-10-07] MEDS: INSULIN HUMULIN R 100 UNIT/ML 3ML SQ SCH ×3 (06:00→17:56)
[2021-10-07] MEDS: LEVOTHYROXINE 50 MCG TABLET PO SCH (06:17)
[2021-10-07] MEDS: POTASSIUM CHLORIDE 20MEQ/100ML 100 ML IV PRN (06:17)
[2021-10-07 06:58] LABS: ABG BASE EXCESS 2.2 mmol/L (-2.0-3.0); ABG HCO3 23.8 mmol/L (21.0-28.0); ABG OXYGEN SATURATION 97.5 % (95.0-99.0); ABG PCO2 29 mmHg (32-45)
[2021-10-07] MEDS: ASCORBIC ACID 500 MG TAB PO SCH (08:19)
[2021-10-07] MEDS: APIXABAN 5 MG TABLET PO SCH ×2 (08:19→20:40)
[2021-10-07] MEDS: PREDNISONE 20 MG TABLET PO SCH (08:19)
[2021-10-07] MEDS: FERROUS SULFATE 325 MG TABLET.DR PO SCH (08:19)
[2021-10-07] MEDS: CHOLESTYRAMINE PACKET 4 GM PACKET PO SCH (08:20)
[2021-10-07] MEDS: FAMOTIDINE 20MG VIAL IV SCH (08:20)
[2021-10-07] MEDS: INSULIN GLARGINE 100 UNITS/ML 10 ML VIAL SQ SCH ×2 (08:21→20:41)
[2021-10-07] MEDS: ACETAMINOPHEN 325 MG TAB PO PRN (10:57)
[2021-10-07] MEDS: QUETIAPINE FUMARATE 25 MG TAB PO SCH (20:39)
[2021-10-08 00:16] VITALS: BP 135/76
[2021-10-08] MEDS: ALBUTEROL 0.083% 2.5 MG/3 ML INH IH SCH ×6 (01:56→22:37)
[2021-10-08 04:16] VITALS: BP 129/81
[2021-10-08 04:17] LABS: BASOPHILS % (AUTO) 0.9 % (0.0-5.0); EOSINOPHILS % (AUTO) 5.1 % (0.0-8.0); HEMATOCRIT 34.3 % (36-48); LYMPHOCYTES % (AUTO) 38.9 % (21.0-51.0); MEAN CORPUSCULAR HEMOGLOBIN 24.5 pg (27.0-33.0); MEAN CORPUSCULAR HGB CONC 31.2 g/dL (32.0-36.0); MEAN CORPUSCULAR VOLUME 78.5 fL (79-99); MONOCYTES % (AUTO) 4.4 % (3.0-13.0); NEUTROPHILS % (AUTO) 50.5 % (40.0-77.0); PLATELET COUNT (AUTO) 315 K/uL (130-400); RED BLOOD CELL COUNT(AUTO) 4.37 MIL/uL (4.00-5.50); RED CELL DISTRIBUTION WIDTH 31.3 % (11.0-15.5); WHITE BLOOD COUNT (AUTO) 5.7 K/uL (4.8-10.8)
[2021-10-08 04:50] LABS: BILIRUBIN,TOTAL 1.1 mg/dL (0.2-1.0); CREATININE 0.4 mg/dL (0.5-1.5); POTASSIUM 3.6 mmol/L (3.5-5.1); TOTAL PROTEIN, SERUM 7.4 g/dL (6.0-8.3)
[2021-10-08] MEDS: INSULIN HUMULIN R 100 UNIT/ML 3ML SQ SCH ×5 (06:00→23:55)
[2021-10-08] MEDS: LEVOTHYROXINE 50 MCG TABLET PO SCH (06:23)
[2021-10-08 08:00] VITALS: BP 137/79
[2021-10-08] MEDS: INSULIN GLARGINE 100 UNITS/ML 10 ML VIAL SQ SCH ×2 (09:00→21:03)
[2021-10-08] MEDS: PREDNISONE 20 MG TABLET PO SCH (09:36)
[2021-10-08] MEDS: APIXABAN 5 MG TABLET PO SCH ×2 (09:36→20:46)
[2021-10-08] MEDS: ASCORBIC ACID 500 MG TAB PO SCH (09:36)
[2021-10-08] MEDS: FERROUS SULFATE 325 MG TABLET.DR PO SCH (09:36)
[2021-10-08] MEDS: CHOLESTYRAMINE PACKET 4 GM PACKET PO SCH (09:36)
[2021-10-08] MEDS: FAMOTIDINE 20MG VIAL IV SCH (09:37)
[2021-10-08] MEDS: ACETAMINOPHEN 325 MG TAB PO PRN ×2 (11:23→20:53)
[2021-10-08 11:30] VITALS: BP 121/79
[2021-10-08 15:49] VITALS: BP 117/76
[2021-10-08 19:30] VITALS: BP 119/91
[2021-10-08] MEDS: ALPRAZOLAM 0.25 MG TABLET PO PRN (20:45)
[2021-10-08] MEDS: QUETIAPINE FUMARATE 25 MG TAB PO SCH (20:45)
[2021-10-09] VITALS (7 sets, daily range): BP systolic 122–130; BP diastolic 71–86
[2021-10-09] MEDS: ALBUTEROL 0.083% 2.5 MG/3 ML INH IH SCH ×6 (02:16→22:04)
[2021-10-09 03:43] LABS: HEMATOCRIT 34.5 % (36-48); MEAN CORPUSCULAR HEMOGLOBIN 24.4 pg (27.0-33.0); MEAN CORPUSCULAR HGB CONC 30.7 g/dL (32.0-36.0); MEAN CORPUSCULAR VOLUME 79.3 fL (79-99); RED BLOOD CELL COUNT(AUTO) 4.35 MIL/uL (4.00-5.50); RED CELL DISTRIBUTION WIDTH 31.6 % (11.0-15.5); WHITE BLOOD COUNT (AUTO) 5.9 K/uL (4.8-10.8)
[2021-10-09 03:53] LABS: CREATININE 0.5 mg/dL (0.5-1.5); POTASSIUM 3.7 mmol/L (3.5-5.1)
[2021-10-09] MEDS: INSULIN HUMULIN R 100 UNIT/ML 3ML SQ SCH ×3 (06:00→16:19)
[2021-10-09] MEDS: LEVOTHYROXINE 50 MCG TABLET PO SCH (07:19)
[2021-10-09] MEDS: ASCORBIC ACID 500 MG TAB PO SCH (08:55)
[2021-10-09] MEDS: APIXABAN 5 MG TABLET PO SCH ×2 (08:55→20:52)
[2021-10-09] MEDS: FAMOTIDINE 20MG VIAL IV SCH (08:55)
[2021-10-09] MEDS: CHOLESTYRAMINE PACKET 4 GM PACKET PO SCH (08:55)
[2021-10-09] MEDS: FERROUS SULFATE 325 MG TABLET.DR PO SCH (08:55)
[2021-10-09] MEDS: ACETAMINOPHEN 325 MG TAB PO PRN (08:56)
[2021-10-09] MEDS: INSULIN GLARGINE 100 UNITS/ML 10 ML VIAL SQ SCH ×2 (08:57→20:53)
[2021-10-09] MEDS: QUETIAPINE FUMARATE 25 MG TAB PO SCH (20:52)
[2021-10-10] MEDS: ALBUTEROL 0.083% 2.5 MG/3 ML INH IH SCH ×3 (02:09→09:53)
[2021-10-10 04:31] VITALS: BP 134/75
[2021-10-10] MEDS: INSULIN HUMULIN R 100 UNIT/ML 3ML SQ SCH ×6 (06:00→21:00)
[2021-10-10] MEDS: LEVOTHYROXINE 50 MCG TABLET PO SCH (06:20)
[2021-10-10 07:55] LABS: ABG BASE EXCESS -0.1 mmol/L (-2.0-3.0); ABG HCO3 22.3 mmol/L (21.0-28.0); ABG OXYGEN SATURATION 97.3 % (95.0-99.0); ABG PCO2 31 mmHg (32-45)
[2021-10-10 08:00] VITALS: BP 116/46
[2021-10-10] MEDS: FERROUS SULFATE 325 MG TABLET.DR PO SCH (08:31)
[2021-10-10] MEDS: APIXABAN 5 MG TABLET PO SCH ×2 (08:31→20:04)
[2021-10-10] MEDS: ASCORBIC ACID 500 MG TAB PO SCH (08:31)
[2021-10-10] MEDS: CHOLESTYRAMINE PACKET 4 GM PACKET PO SCH (08:32)
[2021-10-10] MEDS: FAMOTIDINE 20MG VIAL IV SCH (08:33)
[2021-10-10] MEDS: INSULIN GLARGINE 100 UNITS/ML 10 ML VIAL SQ SCH ×2 (09:00→21:00)
[2021-10-10 12:00] VITALS: BP 120/67
[2021-10-10] MEDS ORDERED: ALBUTEROL 0.083% 2.5 MG/3 ML INH IH PRN (12:00)
[2021-10-10] MEDS: ACETAMINOPHEN 325 MG TAB PO PRN (12:23)
[2021-10-10] MEDS: GUAIFENESIN-DM 200/20 MG 10 ML PO PRN ×2 (13:20→21:53)
[2021-10-10] MEDS: NYSTATIN-TRIAMCINOLONE CREAM 15 GM TP SCH ×2 (15:10→21:56)
[2021-10-10 16:00] VITALS: BP 128/77
[2021-10-10] MEDS: QUETIAPINE FUMARATE 25 MG TAB PO SCH (20:04)
[2021-10-10 20:11] VITALS: BP 113/65
[2021-10-10 23:58] VITALS: BP 126/75
[2021-10-11 04:37] VITALS: BP 129/84
[2021-10-11] MEDS: INSULIN HUMULIN R 100 UNIT/ML 3ML SQ SCH ×4 (05:42→20:22)
[2021-10-11] MEDS: LEVOTHYROXINE 50 MCG TABLET PO SCH (06:08)
[2021-10-11 07:13] LABS: ABG BASE EXCESS -0.4 mmol/L (-2.0-3.0); ABG HCO3 22.2 mmol/L (21.0-28.0); ABG OXYGEN SATURATION 97.5 % (95.0-99.0); ABG PCO2 31 mmHg (32-45)
[2021-10-11] MEDS: FAMOTIDINE 20MG VIAL IV SCH (07:32)
[2021-10-11 08:00] VITALS: BP 124/85
[2021-10-11] MEDS: CHOLESTYRAMINE PACKET 4 GM PACKET PO SCH (09:00)
[2021-10-11] MEDS: INSULIN GLARGINE 100 UNITS/ML 10 ML VIAL SQ SCH ×2 (09:00→19:34)
[2021-10-11] MEDS: APIXABAN 5 MG TABLET PO SCH ×2 (09:57→19:23)
[2021-10-11] MEDS: ASCORBIC ACID 500 MG TAB PO SCH (09:57)
[2021-10-11] MEDS: FERROUS SULFATE 325 MG TABLET.DR PO SCH (09:57)
[2021-10-11] MEDS: NYSTATIN-TRIAMCINOLONE CREAM 15 GM TP SCH ×3 (10:00→20:53)
[2021-10-11 12:00] VITALS: BP 118/70
[2021-10-11 14:52] LABS: APPEARANCE,URINE CLOUDY (CLEAR); BILIRUBIN,URINE SMALL (NEGATIVE); COLOR,URINE YELLOW (YELLOW); GLUCOSE, URINE (UA) NEGATIVE (NEGATIVE); KETONES,URINE >=80 mg/dL (NEGATIVE); LEUKOCYTE ESTERASE ,URINE MODERATE (NEGATIVE); NITRATE,URINE POSITIVE (NEGATIVE); OCCULT BLOOD,URINE LARGE (NEGATIVE); PH,URINE 8.5 (5.0-8.0); PROTEIN,URINE >=300 mg/dL (NEGATIVE)
[2021-10-11 15:18] LABS: BACTERIA,URINE Moderate /HPF (None Seen); SQUAMOUS EPITHELIAL CELL,UR Few /HPF (0-2); TRANSITIONAL EPI CELLS,URINE Few /HPF (None Seen); WBC,URINE 51-100 /HPF (0-1)
[2021-10-11 15:19] LABS: AMORPHOUS SEDIMENT,UR Rare /LPF (None Seen); TRIPLE PHOSPHATE CRYSTAL,UR Rare /LPF (None Seen)
[2021-10-11] MEDS: GUAIFENESIN-DM 200/20 MG 10 ML PO PRN ×2 (15:36→22:06)
[2021-10-11 16:00] VITALS: BP 117/75
[2021-10-11 18:00] LABS: HEMATOCRIT 36.4 % (36-48); MEAN CORPUSCULAR HEMOGLOBIN 24.9 pg (27.0-33.0); MEAN CORPUSCULAR HGB CONC 30.8 g/dL (32.0-36.0); MEAN CORPUSCULAR VOLUME 80.9 fL (79-99); PLATELET COUNT (AUTO) 323 K/uL (130-400); WHITE BLOOD COUNT (AUTO) 6.7 K/uL (4.8-10.8)
[2021-10-11 18:10] LABS: CREATININE 0.5 mg/dL (0.5-1.5); POTASSIUM 3.3 mmol/L (3.5-5.1)
[2021-10-11] MEDS: ACETAMINOPHEN 325 MG TAB PO PRN (18:21)
[2021-10-11] MEDS: LEVOFLOXACIN 750 MG TABLET PO SCH (18:21)
[2021-10-11] MEDS ORDERED: POTASSIUM CHLORIDE 20MEQ/100ML 100 ML IV PRN (18:30)
[2021-10-11] MEDS ORDERED: KCL 20 MEQ ERTAB PO PRN (18:30)
[2021-10-11] MEDS ORDERED: POTASSIUM CHLORIDE 10% ELIXIR 20 MEQ/15 ML UDCUP PO PRN (18:30)
[2021-10-11] MEDS ORDERED: LIDOCAINE HCL-MPF 1% 2ML VIAL IV PRN (18:30)
[2021-10-11] MEDS: QUETIAPINE FUMARATE 25 MG TAB PO SCH (19:22)
[2021-10-11 20:00] VITALS: BP 119/63
[2021-10-11 23:45] VITALS: BP 113/67
[2021-10-12 04:00] VITALS: BP 109/55
[2021-10-12] MEDS: GUAIFENESIN-DM 200/20 MG 10 ML PO PRN (04:27)
[2021-10-12 04:54] LABS: HEMATOCRIT 37.1 % (36-48); MEAN CORPUSCULAR HEMOGLOBIN 24.2 pg (27.0-33.0); MEAN CORPUSCULAR HGB CONC 30.2 g/dL (32.0-36.0); MEAN CORPUSCULAR VOLUME 80.3 fL (79-99); PLATELET COUNT (AUTO) 327 K/uL (130-400); RED BLOOD CELL COUNT(AUTO) 4.62 MIL/uL (4.00-5.50); WHITE BLOOD COUNT (AUTO) 6.1 K/uL (4.8-10.8)
[2021-10-12 05:05] LABS: CREATININE 0.5 mg/dL (0.5-1.5); POTASSIUM 4.2 mmol/L (3.5-5.1)
[2021-10-12] MEDS: INSULIN HUMULIN R 100 UNIT/ML 3ML SQ SCH ×4 (05:52→20:26)
[2021-10-12] MEDS: LEVOTHYROXINE 50 MCG TABLET PO SCH (06:13)
[2021-10-12 08:12] VITALS: BP 113/80
[2021-10-12] MEDS ORDERED: LEVO750T46 PO (08:50)
[2021-10-12] MEDS ORDERED: LEVOFLOXACIN 750 MG TABLET PO SCH (09:00)
[2021-10-12] MEDS: INSULIN GLARGINE 100 UNITS/ML 10 ML VIAL SQ SCH ×2 (09:17→20:26)
[2021-10-12] MEDS: FAMOTIDINE 20MG VIAL IV SCH (09:21)
[2021-10-12] MEDS: LEVOFLOXACIN 750 MG TABLET PO SCH (09:21)
[2021-10-12] MEDS: APIXABAN 5 MG TABLET PO SCH ×2 (09:21→20:23)
[2021-10-12] MEDS: ASCORBIC ACID 500 MG TAB PO SCH (09:21)
[2021-10-12] MEDS: FERROUS SULFATE 325 MG TABLET.DR PO SCH (09:21)
[2021-10-12] MEDS: NYSTATIN-TRIAMCINOLONE CREAM 15 GM TP SCH ×3 (09:21→20:25)
[2021-10-12] MEDS: CHOLESTYRAMINE PACKET 4 GM PACKET PO SCH (09:21)
[2021-10-12 11:30] VITALS: BP 134/68
[2021-10-12 16:00] VITALS: BP 152/79
[2021-10-12] MEDS: ACETAMINOPHEN 325 MG TAB PO PRN (18:06)
[2021-10-12 20:00] VITALS: BP 114/79
[2021-10-12] MEDS: QUETIAPINE FUMARATE 25 MG TAB PO SCH (20:24)
[2021-10-12] MEDS ORDERED: PHARMACY COMMUNICATION MISC SCH (20:30)
[2021-10-13] VITALS: BP 123/87
[2021-10-13 04:00] VITALS: BP 128/75
[2021-10-13] MEDS: LEVOTHYROXINE 50 MCG TABLET PO SCH (04:17)
[2021-10-13] MEDS: ACETAMINOPHEN 325 MG TAB PO PRN (04:30)
[2021-10-13] MEDS: INSULIN HUMULIN R 100 UNIT/ML 3ML SQ SCH (06:39)
[2021-10-13 08:14] VITALS: BP 117/82
[2021-10-13] MEDS: CHOLESTYRAMINE PACKET 4 GM PACKET PO SCH (08:14)
[2021-10-13] MEDS: FERROUS SULFATE 325 MG TABLET.DR PO SCH (08:14)
[2021-10-13] MEDS: LEVOFLOXACIN 750 MG TABLET PO SCH (08:14)
[2021-10-13] MEDS: APIXABAN 5 MG TABLET PO SCH (08:14)
[2021-10-13] MEDS: ASCORBIC ACID 500 MG TAB PO SCH (08:14)
[2021-10-13] MEDS: FAMOTIDINE 20MG VIAL IV SCH (08:14)
[2021-10-13] MEDS: NYSTATIN-TRIAMCINOLONE CREAM 15 GM TP SCH (08:29)
[2021-10-13] MEDS: INSULIN GLARGINE 100 UNITS/ML 10 ML VIAL SQ SCH (08:29)
[2021-10-13] MEDS ORDERED: LEVO50CA4 PO (08:56)
[2021-10-13] MEDS ORDERED: APIX5TAB PO (08:56)
== END 2021-10-13 11:50 | disposition home or self-care (01) | DRG 5 ==
LOC: EDH 11:35 → EDHIP 11:36 → 2AH 20:35 → 2BH 10-04 17:06 → 4AH 10-07 22:38
PROVIDERS: ADMIT Hospitalist; ATTEND Hospitalist
PROC: 5A1955Z Respiratory Ventilation, Greater than 96 Consecutive Hours (ICD-10-PCS; 2021-09-18)
PROC: 0BH17EZ Insertion of Endotracheal Airway into Trachea, Via Natural or Artificial Opening (ICD-10-PCS; 2021-09-18)
PROC: 02HV33Z Insertion of Infusion Device into Superior Vena Cava, Percutaneous Approach (ICD-10-PCS; 2021-09-20)
PROC: 5A1935Z Respiratory Ventilation, Less than 24 Consecutive Hours (ICD-10-PCS; 2021-10-02)
PROC: 5A09357 Assistance with Respiratory Ventilation, Less than 24 Consecutive Hours, Continuous Positive Airway Pressure (ICD-10-PCS; 2021-10-02)
PROC: 0DH63UZ Insertion of Feeding Device into Stomach, Percutaneous Approach (ICD-10-PCS; 2021-10-03)
PROC: 5A1935Z Respiratory Ventilation, Less than 24 Consecutive Hours (ICD-10-PCS; 2021-10-03)
PROC: 5A09357 Assistance with Respiratory Ventilation, Less than 24 Consecutive Hours, Continuous Positive Airway Pressure (ICD-10-PCS; 2021-10-03)
PROC: 0B113F4 Bypass Trachea to Cutaneous with Tracheostomy Device, Percutaneous Approach (ICD-10-PCS; principal; 2021-10-03 07:39)
PROC: 5A1935Z Respiratory Ventilation, Less than 24 Consecutive Hours (ICD-10-PCS; 2021-10-04)
PROC: 5A09357 Assistance with Respiratory Ventilation, Less than 24 Consecutive Hours, Continuous Positive Airway Pressure (ICD-10-PCS; 2021-10-04)
PROC: 5A1935Z Respiratory Ventilation, Less than 24 Consecutive Hours (ICD-10-PCS; 2021-10-05)
PROC: 5A09357 Assistance with Respiratory Ventilation, Less than 24 Consecutive Hours, Continuous Positive Airway Pressure (ICD-10-PCS; 2021-10-05)
DX: A41.9 Sepsis, unspecified organism (principal); J12.82 Pneumonia due to coronavirus disease 2019; R65.21 Severe sepsis with septic shock; J95.851 Ventilator associated pneumonia; G93.41 Metabolic encephalopathy; E43 Unspecified severe protein-calorie malnutrition; J96.21 Acute and chronic respiratory failure with hypoxia; U07.1 COVID-19; I46.9 Cardiac arrest, cause unspecified; D69.6 Thrombocytopenia, unspecified; E87.4 Mixed disorder of acid-base balance; N17.9 Acute kidney failure, unspecified; K76.0 Fatty (change of) liver, not elsewhere classified; E87.1 Hypo-osmolality and hyponatremia; N39.0 Urinary tract infection, site not specified; J98.11 Atelectasis; E87.6 Hypokalemia; E78.5 Hyperlipidemia, unspecified; E03.9 Hypothyroidism, unspecified; D64.9 Anemia, unspecified; E86.0 Dehydration; N18.9 Chronic kidney disease, unspecified; E11.22 Type 2 diabetes mellitus with diabetic chronic kidney disease; I12.9 Hypertensive chronic kidney disease with stage 1 through stage 4 chronic kidney disease, or unspecified chronic kidney disease; E11.65 Type 2 diabetes mellitus with hyperglycemia; E66.01 Morbid (severe) obesity due to excess calories; B96.1 Klebsiella pneumoniae [K. pneumoniae] as the cause of diseases classified elsewhere; E78.00 Pure hypercholesterolemia, unspecified; F41.9 Anxiety disorder, unspecified; Z68.37 Body mass index [BMI] 37.0-37.9, adult; I48.91 Unspecified atrial fibrillation; E83.51 Hypocalcemia; F02.80 Dementia in other diseases classified elsewhere, unspecified severity, without behavioral disturbance, psychotic disturbance, mood disturbance, and anxiety; R13.10 Dysphagia, unspecified; K31.9 Disease of stomach and duodenum, unspecified; K59.00 Constipation, unspecified; R13.12 Dysphagia, oropharyngeal phase; Z79.84 Long term (current) use of oral hypoglycemic drugs; Z79.899 Other long term (current) drug therapy
CPT/HCPCS: 31500; 36415; 36600; 43246; 70450; 71045; 71250; 74176; 76705; 80048; 80053; 80076; 80202; 81001; 81025; 82040; 82435; 82803; 82947; 82948; 83036; 83540; 83550; 83605; 83690; 83735; 83880; 84100; 84132; 84145; 84295; 84443; 85018; 85025; 85027; 85378; 85610; 85651; 85730; 86140; 87040; 87071; 87077; 87088; 87186; 87205; 87635; 87804; 92507; 92597; 92610; 93005; 93970; 94002; 94003; 94640; 94664; 97039; C1894; C9803; G0378; J0282; J0610; J0696; J1120; J1630; J1650; J1756; J1815; J1885; J1940; J2060; J2185; J2250; J2370; J2405; J2543; J2704; J2710; J2920; J3010; J3370; J3480; J3490; J7030; J7050; J7060; J7070

== ENCOUNTER → 2023-08-28 | Outpatient (CLI) | payer MEDICAID ==
[~2023-08-28] MED LIST: APIX5TAB PO; LEVO50CA4 PO; LEVO750T68 PO
== END | disposition home or self-care (01) ==
LOC: SHCH 10:00
PROVIDERS: ATTEND Internal Medicine
DX: I48.91 Unspecified atrial fibrillation (principal)
CPT/HCPCS: 93306